=== PATIENT | female | born 1990 | race Caucasian/White ===

== ENCOUNTER 2022-05-30 15:00 | Outpatient (RCR) | payer MEDICAID, SELFPAY ==
--- NOTE | 2022-04-19 09:54 | PT.OPDNX ---
PT [place] [facility] Daily Note PT [place] [facility] Daily Note Start: 04/17/22 07:58 Freq: Status: Active Protocol: Document 04/18/22 15:53 ARR (Rec: 04/18/22 16:55 ARR [id number]) E-Signed By Prema Hawthorne DPT PT OP Daily Progress Note Visit Information Note Type Daily Note Visit Number 7 Cancellation Note Cancelled Documentation Eval: 01/16/22 // 1x/wk x 12 visits Re-eval 04/18/22 / 8 visits every other wk POC 04/18/22 Insurance Information Insurance Name Medicaid,[facility] Medical Diagnosis abdominal pain s/p Treating Diagnosis R10.30 Lower abdominal pain, unspecified R27.8 Lack of coordination ( muscle incoordination Referring MD Kanwal Messer Subjective Subjective Things going well. A few had difficulty connecting with lower abs. Walking does 0.7 miles. [place] hasn't been as painful. Objective Patient Instructed in Risks/Benefits Yes Therapeutic Exercise Therapeutic Exercise: To Restore TE x 5 min Functional Status -Education for walking to 30 minutes -Education for monitoring for increased PF sx's with addition of strengthening exercises to include: dysuria, difficulty fully emptying, difficulty starting urine stream, inc'd pain with intercourse -To complete stretching/ breathing exercises after new HEP - pt to pick 2-3 exercises for 2-3 minutes after HEP strengthening -Progression toward strengthening with pt goal of return to running when able. Neuromuscular Re-Ed Neuromuscular Reeducation Minutes ( 42 minutes) Neuromuscular Reeducation Comments NMR x 55 min for purposes of reducing tissue tenderness, pain, and improving overall mobility -Mini-squat x 15 reps - cues for form and chair for hips back -Bridge x 5 reps -Bridge with alt December x 3 -Bridge w/alt LE december keeping toe down 2 x 5 reps - progressed HEP -TA set with alt December x 10 reps -TA set with alt December unloading leg by 50% x 5 reps -Side plank w/staggered stance 2 x 15-20 sec -Sidelying clam x 10 reps no band. x 15 reps OTB R LE. x 15 reps L LE.- progressed HEP -Hooklying breathing with TA activation on exhale x 5 reps. -TA set with bent LE fallout on an exhale x 10 reps ea LE -Counter push up x 15 reps Education: -Progressions of all exercises this date with reps/sets -How to complete at home either every other day for 4- 5x/wk with glut and core exercises 2-3 exercises of each OR to complete on alternating days for core and glut for recovery days. Treatment Minutes Timed Code Treatment Minutes 42 Total Treatment Time 42 Billing Units Neuromuscular Reeducation Units 3 Assessment/Impression Assessment/Impression Able to progress exercises this date in clinic and within HEP with goal of progression toward running. Intermittent cues throughout for form. Pt to progress toward walking 30 min then interval running. Plan of Care Physical Therapy Goals *Timeframe of goals are adjusted below to reflect new plan of care frequency. STG (within 4visits) 1)Pt will implement HEP without inc?d symptoms - MET LTG (within 8 visits) 1)Pt will report abdominal pain not exceeding 2/10 during the day for improved ability to care for child - met 2)Pt will be indep in collision mechanic training with proper breathing and TA/PF activation during squatting, lifting, reaching, for completion of ADL?s to reduce pain flare - progressing toward 3)Pt will report Marinoff scale 0/5 - progressing toward 4)Pt will report at least 70% improvement in neck/upper back pain since start of therapy for ability to return to PLOF - progressing toward Daily Plan of Care Continue per POC Daily Plan of Care Comments PLAN: 8 visits at a frequency of every other week within 90 days -Reassess scar -Return to running screen -Progress HEP Recertification Information Clinical Certification # #[id number] Patient's H.I.C.N.# # Initial Certification Date 01/16/22 Most Recent Visit 04/18/22 Recertification Start Date 04/19/22 Recertification Due Date 07/17/22 Reasons to Continue Skilled Therapy Pt has been seen from 01/16/22- 04/18/22 for x 7 visits s/p c- section. Interventions including therapeutic exercise , manual therapy, neuromuscular re-education, and self care. Focus of PT on spinal ROM, scar tissue mobilization s/p , deep breathing for PFM elongation, and recent progression to core/glut strengthening. At this time pt is making adequate progress toward goals, however, pt has not yet met all goals and continued skilled PT is indicated with extension of current plan of care. Rehabilitation Potential Good to achieve goals Continued Plan of Care and Interventions Recommend continued PT for an additional 8 visits at a frequency of every other week within 90 days I Certify That I Have Established All Therapy Services/Plan Therapist Signature & License Number Prema Marine DPT [id number] Physician Signature Shows Agreement Dates & Medical Necessity Physician Comment/Change Comment or Changes Physician Signature & Date Please Sign/Date Here Physician NPI Number #
== END 2022-08-16 16:19 | disposition home or self-care (01) ==
PROVIDERS: PCP Obstetrics & Gynecology; Visit Provider Obstetrics & Gynecology
DX: R10.30 Lower abdominal pain, unspecified (principal); Z51.89 Encounter for other specified aftercare
CPT/HCPCS: 97110; 97112; 97140

== ENCOUNTER 2022-06-06 11:29 | Outpatient (CLI) | payer MEDICAID, SELFPAY | END 2022-06-06 11:30 | disposition home or self-care (01) | LOC: NFLDREF 06-08 15:16 | PROVIDERS: PCP Obstetrics & Gynecology; Visit Provider Family Medicine | DX: R30.0 Dysuria (principal) | CPT/HCPCS: 87086 ==

== ENCOUNTER 2022-08-26 13:19 | Outpatient (CLI) | payer MEDICAID, SELFPAY ==
--- OUTSIDE RECORDS SUMMARY | 2022-08-31 09:46 | XMS_ITS | Clinical Summary ---
:1990 Author Organization [facility] [place] [address] Care Team Providers Name Role Phone Clinic, No Pcp Or Primary Care Provider Unavailable Allergies No known active allergies Medications No known medications Active Problems Not on file Encounters Date Type Specialty Care Team Description 06/02/2022 Office Visit Jennifer Vazquez Urinar y Problem DO 06/02/2022 Telephone Clinic, No Pcp Or Questions (REGARDING MEDICATION YANELY ENT WAS PRESCRIBED TODA Y IN [facility]) 06/02/2022 Travel from Last 3 Months Social History Tobacco Use Types Packs/Day Years Used Date Never Smoker Smokeless Tobacco: Never Used Sex Assigned at Date Recorded Not on file Obstetrics History Last Filed Vital Signs Vital Sign Reading Time Taken Comments Blood Pressure 123/60 06/02/2022 10:16 AM CDT Pulse 61 06/02/2022 10:16 AM CDT Temperature 36.8 ??C (98.3 ??F) 06/02/2022 10:16 AM CDT Respiratory Rate 18 06/02/2022 10:16 AM CDT Oxygen Saturation 98% 06/02/2022 10:16 AM CDT Inhaled Oxygen Concentration - - Weight 55.3 kg (122 lb) 05/24/2022 12:16 PM CDT Height - - Body Mass Index - - Plan of Treatment Health Maintenance Due Date Last Done Comments COVID-19 vaccine series (#1) 02/18/1991 Tdap 2001 Depression screening for age 12+ 2002 BMI (ht and wt on same day) for age 18+ 2008 Hepatitis C screening for age 18-79 2008 Tetanus booster 2010 Influenza for age 9-49 06/21/2022 Pap test for age 21-65 01/01/2025 01/01/2022, 01/01/2022 Procedures Procedure Name Priority Date/Time Associated Comments Diagnosis URINALYSIS STAT 06/02/2022 10:11 Dysuria Results for this MICROSCOPIC AM CDT procedure are i n the results section. UA W/ SEDIMENT EXAM STAT 06/02/2022 10:11 Dysuria Resu lts for this REFLEXED PER CRITERIA AM CDT proced ure are in the results section. from Last 3 Months Results (ABNORMAL) URINALYSIS MICROSCOPIC (06/02/2022 10:11 AM CDT) [facility] Method Time Signature RBC 0-2 0-2, None 06/02/2022 [place] Seen /HPF 10:37 AM [facility] WBC 11-25 (A) 0-2, 3-5, 06/02/2022 [place] None Seen 10:37 AM [facility] /HPF LABORATORY BACTERIA Few None 06/02/2022 [place] Seen, 10:37 AM [facility] Rare, Few LABORATORY Bacteria/ HPF EPITHELIAL Few None 06/02/[address] [facility] CELLS Seen, Few 10:37 AM [facility] Epi/HPF LABORATORY Specimen Anatomical Collection Method Collection Time Receive d Time (Source) Location / / Volume Laterality Urine URINE SPECIMEN / Non-Blood / 06/02/2022 10:11 022 Unknown Unknown AM CDT 10:25 AM CDT [place] DENT URINE Performing Organization Address City/State/ZIP Code Phon e Number [facility] [address] [place] [address] (ABNORMAL) UA W/ SEDIMENT EXAM REFLEXED PER CRITERIA (06/02/2022 10:11 AM CDT) [facility] Method Time Signature COLOR Yellow Yellow Color 06/02/[address] [facility] 10:38 AM [facility] CLARITY Slightly Clear 06/02/[address] [facility] Cloudy (A) Clarity 10:38 AM [facility] SPECIFIC <=1.005 (A) 1.010, 06/02/[address] [facility] GRAVITY,URINE 1.015, 10:38 AM MEDICAL 1.020, 1.025 T CENTER LABORATORY PH,URINE 6.5 6.0, 7.0, 06/02/2022 [place] 8.0, 5.5, 10:38 AM MEDICAL 6.5, 7.5, CDT CENTER 8.5 LABORATORY UROBILINOGEN, Normal Normal EU/dl 06/02/2022 [place] QUALITATIVE 10:38 AM [facility] PROTEIN, Negative Negative 06/02/2022 [place] URINE mg/dL 10:38 AM [facility] GLUCOSE, Negative Negative 06/02/[address] [facility] UR[facility] mg/dL 10:38 AM [facility] KETONES,URINE Negative Negative 06/02/[address] [facility] mg/dL 10:38 AM [facility] BILIRUBIN,URI Negative Negative 06/02/[address] [facility] NE 10:38 AM [facility] OCCULT Negative Negative 06/02/[address] [facility] BLOOD,URINE 10:38 AM [facility] NITRITE Negative Negative 06/02/[address] [facility] 10:38 AM [facility] LEUKOCYTE Large (A) Negative 06/02/[address] [facility] ESTERASE 10:38 AM [facility] Specimen Anatomical Collection Method Collection Time Receive d Time (Source) Location / / Volume Laterality Urine URINE SPECIMEN / Non-Blood / 06/02/2022 10:11 022 Unknown Unknown AM CDT 10:25 AM CDT Authorizing Provider Result [place] DENT URINE Performing Organization Address City/State/ZIP Code Phon e Number [facility] [address] [place] [address] from Last 3 Months Insurance Payer Benefit Plan / Subscriber ID Effective Dates Phone Addre ss Type Group [employer] [place] [id number] 2021-Present [address] [place] [address] Care Teams Engineer Booster And Exhauster Relationship Specialty Start Date End Date Clinic, No Pcp Or PCP - General 05/24/22 .
== END 2022-08-26 13:20 | disposition home or self-care (01) ==
LOC: NFLDUCREF 08-31 09:31
PROVIDERS: PCP Family Medicine; Visit Provider Registered Nurse
DX: R30.0 Dysuria (principal); N39.0 Urinary tract infection, site not specified
CPT/HCPCS: 87086

== ENCOUNTER 2022-11-01 11:00 | Outpatient (CLI) | payer MEDICAID, SELFPAY | END 2022-11-01 11:01 | disposition home or self-care (01) | LOC: NFLDREF 11:01 | PROVIDERS: PCP Family Medicine; Visit Provider Family Medicine | DX: R30.0 Dysuria (principal) | CPT/HCPCS: 87086 ==

== ENCOUNTER 2022-11-12 19:14 | Outpatient (CLI) | payer MEDICAID, SELFPAY | END 2022-11-12 19:15 | disposition home or self-care (01) | LOC: NFLDUCREF 11-14 14:19 | PROVIDERS: PCP Family Medicine; Visit Provider Student in an Organized Health Care Education/Training Program | DX: R30.0 Dysuria (principal) | CPT/HCPCS: 87086 ==

== ENCOUNTER 2023-01-16 15:00 | Outpatient (RCR) | payer MEDICAID, SELFPAY | END 2023-02-14 08:49 | disposition home or self-care (01) | PROVIDERS: PCP Family Medicine; Visit Provider Family Medicine | DX: M62.89 Other specified disorders of muscle (principal); Z51.89 Encounter for other specified aftercare | CPT/HCPCS: 97110; 97140; 97161; 97535 ==

== ENCOUNTER 2023-04-08 14:34 | Outpatient (CLI) | payer MEDICAID, SELFPAY | END 2023-04-08 14:35 | disposition home or self-care (01) | PROVIDERS: PCP Family Medicine; Visit Provider Advanced Practice Midwife | DX: Z34.91 Encounter for supervision of normal pregnancy, unspecified, first trimester (principal); Z3A.08 8 weeks gestation of pregnancy | CPT/HCPCS: 76817; 84443; 86592; 86703; 86762; 86787; 86803; 86850; 86900; 86901; 87086; 87340 ==

== ENCOUNTER 2023-04-30 08:30 | Outpatient (CLI) | payer MEDICAID, SELFPAY | END 2023-04-30 08:31 | disposition home or self-care (01) | LOC: NFLDREF 05-01 06:42 | PROVIDERS: PCP Family Medicine; Referring Provider Family Medicine; Visit Provider Advanced Practice Midwife | DX: Z34.81 Encounter for supervision of other normal pregnancy, first trimester (principal); O26.851 Spotting complicating pregnancy, first trimester; Z3A.12 12 weeks gestation of pregnancy | CPT/HCPCS: 87086 ==

== ENCOUNTER 2023-06-27 12:14 | Outpatient (CLI) | payer MEDICAID, SELFPAY ==
--- NOTE | 2023-06-27 12:15 | CRLHL7_ITS ---
For Patients: As a result of the Century Cures Act, medical imaging exams and procedure reports are released immediately into your electronic medical record. You may view this report before your referring provider. If you have questions, please contact your health care provider. CLINICAL HISTORY: Basic anatomy survey. LEXX by LMP: 11/12/2023 GA: 20w, 2d. INDICATION: BFAS. FINDINGS: position: Vertex, longitudinal. Cervix: Visualized. Technique: Transabdominal. Length of closed cervix: 3.8 cm. Placenta/cord: Irregular lakes, Posterior. Technique: Transabdominal. Placenta tip to internal OS: 6.5 cm. Umbilical Cord: 3-vessel cord. Placenta insertion: Central. Amniotic Fluid: 3.6 cm SDP (greater than/equal to: 2- less than 8 cm). SURVEY: Observed Structures Calvarium/Spine: Cerebellum: 2.2 cm, 22w 0d. Cisterna Magna: 5 mm. Nuchal Fold: 2.8 mm. Lateral Ventricle: 7 mm. CSP: Yes. Midline Falx: Yes. Choroid Plexus: Yes. Spine: Yes. Abdomen: Stomach: Yes. Abd Cord Insertion: Yes. Urinary Bladder: Yes. Kidneys: Yes. Diaphragm: Yes. Face: Nose/lips: Yes. No. Orbital view: Yes. Profile: Yes. Limbs: Upper Extremities: Yes. Lower Extremities: Yes. Hands: Yes. Feet: Yes. Vascular: Four-Chamber Heart: Yes. LVOT: Yes. RVOT: Yes. 3VV: Yes. 3VTV: Yes. BPD: 4.8 cm. 20w 3d, 55 percent. HC: 18.2 cm. 20w 4d, 56 percent. AC: 15.5 cm. 20w 5d, 58 percent. FL: 3.4 cm. 20w 4d, 51 percent. FL/AC: 21.64 percent. HC/AC Ratio: 1.17 Heart rate: 149 beats per minute. age by this US: 20w 6d. LEXX by this US: 11/08/2023 EFW: 366g. Weight: 13oz. Percentile by LEXX: 65 percent. There are hypoechoic areas within the placenta most likely reflecting venous lakes. IMPRESSION: Single live intrauterine gestation. No gross anomalies visualized. Cheryl Mccallum M.D. Diagnostic/Breast Radiologist [email or web address] CHARLEYP/[email or web address] PT/Dictated by: Cheryl Mccallum MD @ 06/28/2023 6:37:00 AM (Electronically Signed)
== END 2023-06-27 12:15 | disposition home or self-care (01) ==
LOC: US 12:15
PROVIDERS: PCP Family Medicine; Visit Provider Advanced Practice Midwife
DX: Z34.92 Encounter for supervision of normal pregnancy, unspecified, second trimester (principal); Z3A.20 20 weeks gestation of pregnancy
CPT/HCPCS: 76805

== ENCOUNTER 2023-08-27 13:46 | Outpatient (CLI) | payer MEDICAID, SELFPAY | END 2023-08-27 13:47 | disposition home or self-care (01) | LOC: NFLDREF 13:47 | PROVIDERS: PCP Family Medicine; Visit Provider Advanced Practice Midwife | DX: Z34.93 Encounter for supervision of normal pregnancy, unspecified, third trimester (principal); Z3A.29 29 weeks gestation of pregnancy | CPT/HCPCS: 86592; 86850; J2791 ==

== ENCOUNTER 2023-10-18 08:31 | Outpatient (CLI) | payer MEDICAID, SELFPAY ==
[2023-10-19 07:48] LABS: Strep B DNA Probe Negative (Negative)
[2023-10-19 07:49] LABS: Strep B Susceptibility Needed? No
== END 2023-10-18 08:32 | disposition home or self-care (01) ==
LOC: NFLDREF 08:32
PROVIDERS: PCP Family Medicine; Visit Provider Obstetrics & Gynecology
DX: Z34.93 Encounter for supervision of normal pregnancy, unspecified, third trimester (principal); Z3A.36 36 weeks gestation of pregnancy
CPT/HCPCS: 76816; 87081; 87653

== ENCOUNTER 2023-11-05 07:30 | Outpatient (RCR) | payer MEDICAID, SELFPAY ==
--- NOTE | 2023-08-21 13:11 | PT.OPEX ---
PT [place] Outpatient Eval PT [facility] Outpatient Eval Start: 08/20/23 07:25 Freq: Status: Active Protocol: Document 08/20/23 07:26 ARR (Rec: 08/20/23 08:44 ARR [email or web address]) E-signed By Prema Hawthorne DPT Physical Therapy Outpatient Evaluation Insurance Information Recert Due Date 11/18/23 Insurance Name Medicaid,[facility] Medical Diagnosis O34.219 maternal care for unspecified type scar from previous delivery Treating Diagnosis R10.2 Pelvic and perineal pain M54.5 thoracic spine pain N94.2 vaginismus Referring MD Shirley Galan CNM Subjective Subjective -Subjective: with LEXX 11/12/23, pt wishing to pursue a TOLAC. Pt concerned with aches/pains related to . Mid back is the greatest and groin muscles. Groin muscles increased with walking, clams. Biggest concern is anything to have a after for 1st . -Urinary: No leakage. Able to fully empty without straining and start urine stream without straining. Daytime voiding 8- 10x/day. 1x at night. -Bowel: 1x/day. No straining. [place] chart type 2-3. Can fully empty. -Sexual: Does lengthening exercises prior to intercourse . Pain greatest with initial insertion. Marinoff scale score 1. -PMHx: vaginismus, vestibulitis, hypothyroidism -: G/P 2/ -Surgical PMHx: 1st delivery on 11/20/2021 due to intolerance -Current exercise: Lifting 2x/ week (stopped ab exercises when she bled during 1st trimester, UE strengthening, clams and squats) and walking 3x/wk for 2-3 miles. Objective Other/Pertinent Objective EXTERNAL OBJECTIVE: -Movement screen: MS flexion reduced LS and TS. MS extension reduced TS and LS. MS rotation WNL bilat. -SLS: mild groin pain on opposite LE. Able to maintain 30 sec. Reduced with pelvic compression. -Posture: level IC, bilat foot supination with bilat foot/ hip ER. Inc'd TS kyphosis, reduced LS lordosis. -Hip PROM: IR R 30 / 20 L. ER bilat 80*. -Strength: Other Tests: -Coordination: -Breathing: dec?d posterior and lateral ribcage mvmt with inhalation -Myofascial palpation: Decreased connective tissue mobility with skin rolling at XXX areas -DR: 1/2 depth and 2 fingers at umbilicus / 1/2 depth and 1 fingers below umbilicus / 1/2 depth and 3 fingers above umbilicus Assessment Assessment/Impression Pt is a 33 y/o female who presents with concerns of pelvic pain, thoracic spine pain, and also seeking pelvic floor preparation for for upcoming with LEXX . External assessment was completed at initial evaluation and was significant for bilateral HF tightness, hip IR tightness, global spinal stiffness, and proximal weakness of TA and gluts. Upcoming sessions to assess PFM transvaginally to assess local PFM. Patient is a good candidate for skilled therapy to target deficits described above. Skilled PT intervention is necessary for use of therapeutic exercise manual therapy, neuromuscular re- education, gait training, and therapeutic activity. Functional impairments include difficulty with: walking. See appropriate sections of PT eval for complete list of goals and POC. D/C plan and criteria is for pt to achieve the goals as listed below or until max rehab potential is met. Pt was agreeable with plan of care and goals established. Plan of Care Rehabilitation Potential Good Physical Therapy Goals STG (within 5 visits) 1) Pt will demonstrate proper coordination of motor recruitment patterns for PF then TA activation during isometric activation while maintaining diaphragmatic breathing pattern 2) Pt will report at least 25% improvement in pelvic pain since start of therapy for improved ease of walking using lumbar supports as indicated LTG (within 10 visits) 1) Pt will demonstrate proper coordination of motor recruitment patterns for PF then TA activation during dynamic UE/LE movements in all postures while maintaining diaphragmatic breathing pattern 2) Pt will demonstrate ability to contract, relax, and bulge through PFM without breath holding in multiple positions to show PFM awareness for vaginal delivery 3) Pt will be indep in 3rd trimester lengthening/ prep exercises to improve PFM length and reduce PFM tension 4) Pt will report at least 50% improvement in pelvic pain since start of therapy for improved ease of walking using lumbar supports as indicated Treatment Plan/Direct Interventions Gait Training,Joint Mobilization,Manual Therapy, Neuromuscular Re-ed,Self-Care/ Home Management,Therapeutic Activities,Therapeutic Exercises Frequency/Duration 1x/wk x 10 visits Evaluation Billing Untimed Code Treatment Minutes 30 Complexity Moderate Certification Information Initial Certification Date 08/20/23 Ending Certification Date 11/18/23 Provider Signature Shows Agreement With POC & Medical Necessity Physician Signature & Date Requested Please Sign/Date Here Physician Comment/Change : Physician NPI Number #
== END 2024-03-04 23:59 | disposition home or self-care (01) ==
PROVIDERS: PCP Family Medicine; Visit Provider Advanced Practice Midwife
DX: O34.219 Maternal care for unspecified type scar from previous cesarean delivery (principal); N94.810 Vulvar vestibulitis; N94.2 Vaginismus; R10.2 Pelvic and perineal pain; M54.6 Pain in thoracic spine; Z51.89 Encounter for other specified aftercare
CPT/HCPCS: 97110; 97112; 97140; 97162

== ENCOUNTER 2023-11-19 08:16 | Outpatient (CLI) | payer MEDICAID, SELFPAY ==
--- NOTE | 2023-11-19 08:15 | CRLHL7_ITS ---
For Patients: As a result of the Century Cures Act, medical imaging exams and procedure reports are released immediately into your electronic medical record. You may view this report before your referring provider. If you have questions, please contact your health care provider. INDICATION: Post-dates COMPARISON: 10/18/2023 TECHNIQUE: Real time hill scale imaging of the fetus was performed. Without non-stress testing. FINDINGS: Sonographic imaging demonstrates a single living intrauterine gestation. Fetus demonstrates a regular cardiac rate of 141 beats per minute. Fetus has a vertex position. The amniotic fluid volume appears normal and there is a single deepest pocket measurement of 4.2 cm. The fetus was active and demonstrated normal breathing movements. There was normal flexion and extension of the trunk and extremities. IMPRESSION: Normal biophysical profile score of 8 out of 8. Dictated by Darnell Peralta MD @ 11/19/2023 9:11:19 AM (Electronically Signed)
--- OUTSIDE RECORDS SUMMARY | 2023-11-19 08:18 | XMS_ITS | Clinical Summary ---
Author Name Unknown Organization [facility] Address [place], [place] [address] Care Team Providers Care Analytics Developer Name Role Phone Clinic, No Pcp Or Primary Care Provider Unavaila ble Allergies No known active allergies Medications No known medications Active Problems No known active problems Social History Tobacco Use Types Packs/Day Years Used Date Smoking Tobacco: Never Smokeless Tobacco: Never Sex and Gender Information Value Date Recorded Sex Assigned at Not on file Gender Identity Not on file Sexual Orientation Not on file Obstetrics History Last Filed Vital Signs Vital Sign Reading Time Taken Comments Blood Pressure 130/70 10/13/2022 12:08 PM CAR PORTER Pulse 75 10/13/2022 12:08 PM CAR PORTER Temperature 36.6 ??C (97.8 ??F) 10/13/2022 12:[address] Respiratory Rate 16 10/13/2022 12:08 PM CAR PORTER Oxygen Saturation 99% 10/13/2022 12:08 PM CAR PORTER Inhaled Oxygen Concentration - - Weight 55.3 kg (122 lb) 10/13/2022 12:08 PM CAR PORTER Height - - Body Mass Index - - Plan of Treatment Health Maintenance Due Date Last Done Comments COVID-19 vaccine series (#1) 02/18/1991 Tdap 2001 Depression screening for age 12+ 2002 HIV for age 15-65 2005 BMI (ht and wt on same day) for age 18+ 2008 Hepatitis C screening for ag e 18-79 2008 Tetanus booster 2010 Influenza for age 9-49 06/21/2023 Pap test for age 21-65 01/01/2025 2, 01/01/2022 Pneumococcal series for age 6-64 Aged Out No longer eligible b ased on patient's age to complete this topic Care Teams Analytics Developer Relationship Specialty Start Date End Date Clinic, No Pcp Or . PCP - General 05/24/22
== END 2023-11-19 08:17 | disposition home or self-care (01) ==
LOC: US 08:16
PROVIDERS: PCP Family Medicine; Visit Provider Advanced Practice Midwife
DX: O48.0 Post-term pregnancy (principal); Z3A.41 41 weeks gestation of pregnancy
CPT/HCPCS: 76819

== ENCOUNTER 2023-11-20 16:20 | Inpatient (IN) | payer MEDICAID, SELFPAY ==
[2023-11-20] VITALS (50 sets, daily range): BP systolic 98–192; BP diastolic 54–140; PULSE 87–154; RESP 16–18; TEMP 36.3–36.8; O2SAT 85–100; BMI 19.5
--- OUTSIDE RECORDS SUMMARY | 2023-11-20 15:58 | XMS_ITS | Clinical Summary ---
Author Name Unknown Organization [facility] Address [place], [place] [address] Care Team Providers Care Journeyman Wireman Name Role Phone Clinic, No Pcp Or [...] Comments Blood Pressure 130/70 10/13/2022 12:08 PM MAINTENANCE CONTROLLER Pulse 75 10/13/2022 12:08 PM MAINTENANCE CONTROLLER Temperature 36.6 ??C (97.8 ??F) 10/13/2022 12:[address] Respiratory Rate 16 10/13/2022 12:08 PM MAINTENANCE CONTROLLER Oxygen Saturation 99% 10/13/2022 12:08 PM MAINTENANCE CONTROLLER Inhaled Oxygen Concentration - - Weight 55.3 kg (122 lb) 10/13/2022 12:08 PM MAINTENANCE CONTROLLER Height - - Body Mass Index - [...] age to complete this topic Care Teams Journeyman Wireman Relationship Specialty Start Date End Date Clinic, No Pcp Or . PCP - General 05/24/22
--- NOTE | 2023-11-20 16:24 | P.LDBA_ITS ---
Subjective History of Present Illness Time Seen by Provider: 16:20 Date Seen: 11/20/23 Narrative: Patient is being admitted to Labor and Delivery for labor. She is a 33 year old at weeks gestation. Her full history and physical was dictated by Dr. Messer on 10/25/23. Please see this for details. Specific Issues/Plans -Rigoberto (Alcides) H&P 10/25/23 Dr. Messer 1. Hx for intolerance (11/20/2021) when 8 cm dilation, OP presentation, 9 lb 10 oz Infant transferred for respiratory distress Desires TOLAC. Consent signed. TOLAC consult / consent reviewed with Dr. Messer 07/22/23 Likelihood of success 85% Growth at 36 weeks: cephalic, SDP 5.7 cm, EFW 57%, AC 95%, BPD 75%, HC 85%, FL 11% 2. Recurrent UTI's (not in ). UA at NOB: negative 3. O- Rhogam 28 weeks: received 08/27 : 4. Diffuse placenta mcelroy noted on anatomy scan. report notes hypoechoic areas within the placenta most likely reflecting venous lakes. consulted Dr. Messer, no need for follow up. 5. Post dates BPP on 11/19- 05/28 returning in 2-3 days for NST recommended IOL at 42 weeks COVID: declines Flu: ask again in fall TDAP: Declines 32wk Mental Health: Done OB - Problem Based A/P Additional Plan (1) Pain during labor: Status: Acute (2) Post-dates : Status: Acute (3) Uterine scar from previous delivery affecting : Status: Acute (4) Rh negative status during : Status: Acute Plan Assessment:?? at 41.1 weeks gestation?? GBS negative? Patient is coping well with challenges of labor.?? Labor type: Spontaneous, Active labor? Category 1 FHR pattern.? complicated by: 1. Hx for intolerance (11/20/2021) when 8 cm dilation, OP presentation, 9 lb 10 oz transferred for respiratory distress Desires TOLAC. Consent signed. TOLAC consult / consent reviewed with Dr. Messer 07/22/23 Likelihood of success 85% Growth at 36 weeks: cephalic, SDP 5.7 cm, EFW 57%, AC 95%, BPD 75%, HC 85%, FL 11% 2. Recurrent UTI's (not in ). UA at NOB: negative 3. O- Rhogam 28 weeks: received 08/27 : 4. Diffuse placenta mcelroy noted on anatomy scan. report notes hypoechoic areas within the placenta most likely reflecting venous lakes. consulted Dr. Messer, no need for follow up. 5. Post dates BPP on 11/19- 05/28 returning in 2-3 days for NST recommended IOL at 42 weeks Plan:?? * ?Admit to L & D? * IV access: SL for TOLAC * Monitoring per policy: continuous ? * Candidate for analgesia of choice.? Planning unmedicated for pain management * Expectant management at this time ? * Patient encouraged to reposition and ambulate to promote physiologic labor and . * Anticipate ? Delivery/Labor/Induction Plan Plan: expectant management OB Exam Physical Exam Vital signs: Pulse BP 114 H 123/72 11/20/23 16:13 11/20/23 16:13 Narrative: Vitals Reviewed Constitutional:? Alert and oriented x3 HEENT:? Normocephalic, atraumatic Neck:? Supple Lungs:? Clear to auscultation bilaterally Heart:? Regular rate and rhythm, no murmur, rub or gallop Abdomen:? Soft, nontender, and gravid. Vertex confirmed with cervical exam. Extremities:? No edema or erythema Cervix: 8.5 cm/90%/+2 station/vertex NST: 135 bpm/moderate variability/+accelerations/-decelerations/q 3-5 minutes contractions Detailed Labor and Delivery Exam Patient Gravid: Yes Dilation (cm): 8 Effacement (%): 90 Cervix position: anterior Consistency: soft Contraction Frequency: 2-3 Contraction duration (sec): 60 Tachysystole: No Contraction intensity: Strong/Firm Fetus (Single) Station: +2 Amniotic Membrane Status: intact Heart Rate Baseline: 135 Monitor Accelerations: Absent Monitor Decelerations: None Floor Scraper Variability: Moderate (6-25)
[2023-11-20 17:22] LABS: Basophils Percent Auto 0.1 % (0.0-3.0); Eosinophils Percent Auto 0.1 % (0.0-7.0); Hemoglobin* 13.8 gm/dL (12.0-16.0); Immature Granulocytes Pct Auto 0.1 %; Lymphocytes Percent Auto 7.3 % (20-44); Mean Corpuscular HGB Conc 34 gm/dL (32-36); Mean Corpuscular Hemoglobin 32 pg (26-34); Mean Corpuscular Volume 95 fL (80-100); Monocytes Percent Auto 5.1 % (0.0-11.0); Neutrophils Percent Auto 87.3 % (42.0-72.0); Platelet Count* 238 K/uL (140-440); RDW Coefficient of Variation % 12.3 % (11.5-15.5); White Blood Count* 14.47 K/uL (4.50-11.00)
[2023-11-20 17:37] LABS: Slide Review Reflex No
[2023-11-20] MEDS: LACTATED RINGERS 1000 ML 1,000 ML 1200 ML IV (18:40)
--- NOTE | 2023-11-20 18:58 | PM.OBPNL ---
Subjective Time Seen by Provider: 18:00 Date Seen: 11/20/23 Narrative: ?Patti is coping well with labor pain/contractions. ?Alcides and her criminal justice teacher are with her for support. ?She has been pushing since 1642 with little progress, assumed complete with pushing. Dr. Nichols called to bedside to evaluate positioning. AROM for clear fluid, manual exam and US for presentation evaluation.? Objective Exam: VSS, afebrile General Appearance:? Calm, cooperative. ?No acute distress. ? Psychiatric Exam: Alert and oriented, appropriate affect Abdomen: Gravid Ctx: ?Q 3-5 min apart. ? ? ?Strong FHTs: ?Baseline: 145. ? ? Variability: moderate. ?Accels: +. ? ?Decels: ?-. SVE: 10 assumed with pushing, feels an anterior lip not able to reduce. Membranes: ?AROM Vital Signs: Last Vital Signs Temp 98 F 11/20/23 18:33 Pulse 95 11/20/23 18:21 Resp 16 11/20/23 17:29 BP 107/54 L 11/20/23 18:21 Pulse Ox 98 11/20/23 16:28 Contractions Contraction intensity: Strong/Firm Assessment Station: +2 Heart Rate Baseline: 135 Monitor Accelerations: Absent Monitor Decelerations: None Plan Plan: Assessment:?? at 41.1 gestation?? GBS negative Patient is coping well with challenges of labor.?? Labor type: Spontaneous, Active labor? Category 1 FHR pattern.? complicated by: Hx of C/S desiring TOLAC RH negative blood type Post dates Labor complicated by: slow progression with pushing? Plan:?? Encourage pt to not push if able, may continue with pushing after Dr. Mcarthur evaluation. Continue with routine intrapartum cares as ordered.?? Patient encouraged to move and change positions to promote physiologic labor and .?? Nonpharmacologic comfort measures per patient preference. Candidate for analgesia of choice if desired. Anticipate progress to NVD. ?
--- NOTE | 2023-11-20 19:05 | PM.OBPNL ---
Subjective Date Seen: 11/20/23 Narrative: Patti is currently having an epidural placed for pain management. Objective Vital Signs: Last Vital Signs Temp 98 F 11/20/23 18:33 Pulse 95 11/20/23 18:21 Resp 16 11/20/23 17:29 BP 107/54 L 11/20/23 18:21 Pulse Ox 89 11/20/23 19:02 Contractions Contraction intensity: Strong/Firm Assessment Station: +2 Heart Rate Baseline: 135 Monitor Accelerations: Absent Monitor Decelerations: None Plan Plan: Plan to place navas to empty catheter and take break from pushing once comfortable
[2023-11-20] MEDS: ROPIVACAINE 0.2 % PF 10 ML INJ 20 MG EPIDURAL (19:06)
[2023-11-20] MEDS: LIDOCAINE 2% (PF) 5 ML VIAL EPIDURAL (19:06)
[2023-11-20] MEDS: ROPIVACAINE 0.2% 100 ml 100 ML 12 MG EPIDURAL (19:10)
--- NOTE | 2023-11-20 19:20 | P.ANBPRC_ITS ---
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 Exercise 4 times a week running and weights Lifetime nonsmoker 3 alcoholic drinks a week Smoking Status: Never smoker Do you use any of these nicotine containing products: None Second hand tobacco smoke exposure: No How often do you have a drink containing alcohol: 2-4 times a month How many standard drinks containing alcohol do you have on a typical day: 1 or 2 How often do you have six or more drinks on one occasion: Never AUDIT-C Alcohol total score: 2 Non-prescribed substance use: denies use Little interest or pleasure in doing things: not at all Feeling down, depressed, or hopeless: not at all service: No Meds Home Medications and Allergies Home Medications Medication Instructions Recorded Confirmed Type ascorbate calcium (vitamin C) 500 500 mg PO QDAY 04/08/23 11/19/23 History mg tablet docosahexaenoic acid 200 mg mg PO 04/08/23 11/19/23 History capsule ( DHA) lysine 1,000 mg tablet 1,000 mg PO QDAY 04/08/23 11/20/23 History zinc gluconate 30 mg tablet 30 mg PO ONCE 04/08/23 11/20/23 History calcium carbonate 600 mg calcium 600 mg PO QDAY 10/03/23 11/19/23 History (1,500 mg) tablet (Calcium) magnesium 250 mg tablet 250 mg PO QDAY 10/03/23 11/20/23 History Allergies Allergy/AdvReac Type Severity Reaction Status Date / Time No Known Allergies Allergy Unknown Verified 11/19/23 11:16 Results Labs Labs: Laboratory Results - last 24 hr 11/20/23 17:17 WBC 14.47 H RBC 4.30 Hgb 13.8 Hct 41.0 MCV 95 MCH 32 MCHC 34 RDW Coeff of Martine 12.3 Plt Count 238 Neut % (Auto) 87.3 H Lymph % (Auto) 7.3 L [place] % (Auto) 5.1 Eos % (Auto) 0.1 Baso % (Auto) 0.1 Neut # (Auto) 12.60 H Lymph # (Auto) 1.10 [place] # (Auto) 0.70 Eos # (Auto) 0.00 Baso # (Auto) 0.00 Abs Immat Gran (auto) 0.00 Imm/Tot Granulo (auto) 0.1 Blood Type O Negative Antibody Screen POSITIVE Vital Signs Vital Signs: Last Vital Signs Temp 98 F 11/20/23 18:33 Pulse 112 H 11/20/23 19:19 Resp 16 11/20/23 17:29 BP 119/76 11/20/23 19:19 Pulse Ox 100 11/20/23 19:16 Weight: 60 kg Height: 175.26 cm Anesthesia Procedures Epidural Insertion Patient Location: OB Start Time: 18:20 Stop Time: 19:22 Start Date: 11/20/23 Stop Date: 11/20/23 Reason for Block: procedure for pain Patient Position: sitting Performed By: Lionel Bonilla Preanesthetic Checklist: IV checked, risks and benefits discussed, surgical consent, monitors and equipment checked, pre-op evaluation, timeout performed and anesthesia consent Prep: chlorhexidine gluconate Monitoring: blood pressure monitoring, continuous pulse oximetry and heart rate Approach: midline Vertebral Space: lumbar (1-5) Needle Type: Tuohy needle Injection Technique: continuous catheter Needle gauge: 17 Needle Length (cm): 10 cm Needle Insertion Depth (cm): 6 Catheter Gauge: 19 Catheter Type: multi-orifice Catheter at skin depth (cm): 12 Test Dose Result: negative and lidocaine 1.5% with epinephrine 1 to 200,000
[2023-11-20] MEDS: LACTATED RINGERS 1000 ML 1,000 ML 125 ML IV (20:10)
--- NOTE | 2023-11-20 20:10 | PM.OBPNL ---
Subjective Date Seen: 11/20/23 Narrative: ?Patti is coping well with labor pain/contractions. ?Alcides and Silva are with her for support. ?She is now comfortable with an epidural in place for comfort and pain management.?SVE shows anterior lip is gone and she is now complete. She would like to rest for another 15 minutes and then begin pushing again. Objective Exam: VSS, afebrile General Appearance:? Calm, cooperative. ?No acute distress. ? Psychiatric Exam: Alert and oriented, appropriate affect Abdomen: Gravid Ctx: ?Q 3-5 min apart. ? ? ?Strong FHTs: ?Baseline: 150. ? ? Variability: moderate. ?Accels: +. ? ?Decels: ?occasional lates and variables with contractions. SVE: 10/100/+1 Membranes: ?AROM clear fluid Vital Signs: Last Vital Signs Temp 98 F 11/20/23 18:33 Pulse 110 H 11/20/23 19:58 Resp 16 11/20/23 17:29 BP 109/55 L 11/20/23 19:58 Pulse Ox 99 11/20/23 20:06 Contractions Contraction intensity: Strong/Firm Assessment Station: +2 Heart Rate Baseline: 135 Monitor Accelerations: Absent Monitor Decelerations: None Plan Plan: Assessment:?? at 41.1 wks gestation?? GBS negative Patient is coping well with challenges of labor.?? Labor type: Spontaneous, Active labor? Category 2 FHR pattern.? complicated by: Hx of C/S desiring TOLAC Rh negative Post dates Labor complicated by: Slow decent with persistent anterior lip now resolved.? Plan:?? 15 minute break then begin pushing again Continue with routine intrapartum cares as ordered.?? Patient encouraged to move and change positions to promote physiologic labor and .?? Nonpharmacologic comfort measures per patient preference. Candidate for analgesia of choice if desired. Anticipate progress to NVD. ?
[2023-11-20] MEDS: LACTATED RINGERS 1000 ML 1,000 ML 1100 ML IV (21:07)
--- NOTE | 2023-11-20 21:16 | PM.OBPRCCS ---
Procedure Time Seen by Provider: 22:52 Date of procedure: 11/20/23 Pre-op diagnosis: During heart tones remote from delivery, trial of labor after Post-op diagnosis: same Procedure Done: Global Will [facility] bill your pro fee for this procedure?: Yes Blood Loss Measurement Type: QBL (355) Bakri Used: No IV fluids (mL): 1,200 Urine Output (mL): 250 Urine Output Comment: Blood tinged, clearing in proximal urethral catheter at completion of case Surgeon: Satnam Nichols MD Anesthesia Type: Epidural Findings: Thinning of the lower urine segment Otherwise unremarkable uterus, bilateral fallopian tubes and ovary Procedure Name: Repeat delivery Procedure Description: Patient was taken to the operating room with IV running. She received cefazolin and azithromycin in preoperative prophylaxis. Epidural anesthesia had previously been administered. Mckay catheter had been previously inserted, blood-tinged urine noted prior to case. She was prepped and draped in the usual sterile fashion. Anesthesia was tested and found to be adequate. A low-transverse skin incision was made with a scalpel and carried through to the underlying layer of fascia with the scalpel. The subcutaneous fat was dissected off the underlying fascia with Bovie. The fascia was nicked in the midline with a scalpel, and this incision was extended laterally with scissors. Mild adhesive disease between the rectus fascia and underlying muscles were noted and taken down with a combination of sharp and blunt dissection. The rectus muscles were in the midline. Peritoneum was identified and entered bluntly. Bovie was used to widen this opening laterally. Surinder O retractor was inserted and tightened down, providing excellent visualization of the lower uterine segment. The bladder reflection was found to be advanced to the superior margin of the lower uterine segment. Lower uterine segment was noted to be thinned, no window noted however. A bladder flap was created with a combination of sharp and blunt dissection to below the level of planned hysterotomy. Low-transverse uterine incision was made with a scalpel. Incision was widened bluntly. The 's head was grasped through the hysterotomy and delivered with the help of fundal pressure. The remainder of the body delivered without incident. Cord was clamped and cut after 30 seconds. Infant was handed off to attending nurses. The placenta was delivered with gentle traction on the cord. The uterus was cleaned of all clots and debris with the dry lap pad. The hysterotomy was reapproximated with 0 Vicryl in a running, locked fashion. Second layer of the same suture was used in imbricating fashion to obtain hemostasis. Excellent uterine tone was noted at the mid body to fundus of uterus, lower uterine segment atony was noted and improved with IV Pitocin and uterine massage. The adnexa were examined and noted to be normal in appearance. The cul-de-sac and gutters were cleansed with dampened laparotomy sponge, removing any further clots and debris. The Surinder O retractor was removed. The hysterotomy was reexamined and found to be hemostatic. Bladder flap was examined and found to be hemostatic. Mcaky catheter balloon was utilized to help delineate the bladder reflection from lower uterine segment, where hysterotomy closure was again confirmed to be clear of bladder. The rectus muscles were examined and made to be hemostatic with electrocautery. The fascia was reapproximated with 0 Vicryl in a running fashion. Subcutaneous fat was irrigated and Bovie used on oozing vessels. The skin was closed with a subcuticular stitch of 3-0 Monocryl. Surgical glue was applied above this. Patient tolerated procedure well was taken to recovery area in stable condition. details: - Delivery of live-born female occurred at 10:09 p.m. - Apgars were 7 and 9 at 1 and 5 minutes respectively - weighed 8 lb 12 oz Complications: None Pathology: specimen obtained, sent to pathology Surgery Debrief Performed: Yes Condition: stable Disposition: floor
--- NOTE | 2023-11-20 21:24 | PM.OBPNL ---
Subjective Date Seen: 11/20/23 Narrative: ?Patti is coping well with labor pain/contractions. ?Alcides and her reconciliation specialist are with her for support. ?She has been pushing with little progress for about 1 hour. Recent FHT baseline has increased and been 160-170's with deep variable with some contractions and occasional late decelerations. Discussed this with patient and recommended we consult with Dr. Nichols and move toward repeat C/S. Both Patti and Alcides are in agreement with the plan. ? Objective Vital Signs: Last Vital Signs Temp 98 F 11/20/23 18:33 Pulse 91 11/20/23 21:20 Resp 16 11/20/23 17:29 BP 100/56 L 11/20/23 21:20 Pulse Ox 99 11/20/23 20:26 Contractions Contraction intensity: Strong/Firm Assessment Station: +2 Heart Rate Baseline: 135 Monitor Accelerations: Absent Monitor Decelerations: None Plan Plan: Assessment:?? at 41.1 gestation?? GBS negative Patient is coping well with challenges of labor.?? Labor type: Spontaneous, Active labor? Category 2 FHR pattern.? complicated by: Hx of C/S Rh negative Post dates Labor complicated by: arrest of decent non-reassuring FHT's? Plan:?? Consult with Dr. Nichols for repeat C/S Continue with routine intrapartum cares as ordered.??
[2023-11-20] MEDS: AZITHROMYCIN 500 MG in 0.9 % SODIUM CHLORIDE 250 ml 250 ML 255 MG IVPB (21:25)
--- NOTE | 2023-11-20 21:27 | P.OBCN_ITS ---
OB - CN: HPI Date of Consult Time Seen by Provider: 21:28 Date Seen: 11/20/23 Patient: [facility] Patient Consult date: 11/20/23 Requesting Physician: Angelia Gutiérrez CNM Primary Care Provider: Magaly Fuentes MD Consult Narrative Narrative: The patient is a 33 year old at 41 weeks gestation that was admitted to the [facility] on 11/20/23 for spontaneous onset of labor as a TOLAC. course complicated by late term gestation, Rh negative. Patient presented with spontaneous labor, where she subsequently started involuntary pushing and was thought to be complete. My assessment was requested for position after 2 hours of pushing without descent - where OA position was confirmed but anterior lip was appreciated. Patti was encouraged to try to breathe through contractions to allow for complete dilation. Involuntary pushing continued, where the lip could be inconsistently reduced. She then got an epidural and was able to rest for 1 hour, after which she was found to be complete and 0 station. Pushing was resumed for about 45 minutes, during which there was no descent and category 2 FHR tracing occurred. She had recurrent variable decelerations with delayed return to baseline. Over time a rise in the baseline was noted with periods of minimal variability. Ob consult was requested at 2114, where I recommended repeat delivery in the setting of category 2 FHR tracing remote from delivery. Patient expressed understanding and was in agreement. We discussed risks of intrapartum including bleeding (T/S on file), infection and damage to surrounding structures. We discussed particularly increased risk of bleeding and difficult extraction with second stage . Written consent was obtained. History History 2 Elective abortions Para 1 Spontaneous abortions Hx # Term Pregnancies 1 Ectopic pregnancies Hx # Pregnancies Multiple births Number of Living Children 1 Past Pregnancies Del. Date GA/Weeks Outcome Route wt Inf Gender Labor Lgth Anesthesia Location Provider Compli 11/20/21 40 live - full term low transverse 9 lb 6 oz Male [address] [facility] Blood type: 0 (-) negative GBS status: negative OB Labs: Lab Assessment Start: 11/20/23 16:22 Freq: ONCE Status: Complete Protocol: PC.OBGBS Activity Type Activity Date Activity User E-sign Co-sign Detail Recorded Client Recorded Date Recorded By Document 11/20/23 17:03 CHEMA [id number] 11/20/23 17:04 CHEMA 11/20/23 17:03 Lab Assessment GBS Status negative GBS Additional Criteria None No Treatment Needed OK Are Labs Available Yes Maternal Blood Type O Maternal RH Factor Negative Evaluate Maternal Rubella Immune Status Immune Hepatitis B Surface Antigen Negative Maternal HIV Status Negative Maternal Syphillis (RPR) Status Negative [facility] Medical History (Updated 11/20/23 @ 18:57 by Angelia Gutiérrez CNM) History of urinary tract infection ?Z87.440 - Personal history of urinary (tract) infections (ICD-10) Surgical History Status post primary low transverse section (11/20/21) ?Z98.891 - History of uterine scar from previous surgery (ICD-10) Family History (Updated 10/25/23 @ 11:04 by Kanwal Messer MD) Family/Other Type 1 diabetes mellitus Paternal Grandfather Type 2 diabetes mellitus Mother Graves' disease Sister Melanoma Social History Narrative: SOCIAL Education: PHD in Moldovan literature 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 Exercise 4 times a week running and weights Lifetime nonsmoker 3 alcoholic drinks a week Smoking Status: Never smoker Do you use any of these nicotine containing products: None Second hand tobacco smoke exposure: No How often do you have a drink containing alcohol: 2-4 times a month How many standard drinks containing alcohol do you have on a typical day: 1 or 2 How often do you have six or more drinks on one occasion: Never AUDIT-C Alcohol total score: 2 Non-prescribed substance use: denies use Little interest or pleasure in doing things: not at all Feeling down, depressed, or hopeless: not at all service: No Meds Home Medications and Allergies Home Medications Medication Instructions Recorded Confirmed Type ascorbate calcium (vitamin C) 500 500 mg PO QDAY 04/08/23 11/19/23 History mg tablet docosahexaenoic acid 200 mg mg PO 04/08/23 11/19/23 History capsule ( DHA) lysine 1,000 mg tablet 1,000 mg PO QDAY 04/08/23 11/20/23 History zinc gluconate 30 mg tablet 30 mg PO ONCE 04/08/23 11/20/23 History calcium carbonate 600 mg calcium 600 mg PO QDAY 10/03/23 11/19/23 History (1,500 mg) tablet (Calcium) magnesium 250 mg tablet 250 mg PO QDAY 10/03/23 11/20/23 History Allergies Allergy/AdvReac Type Severity Reaction Status Date / Time No Known Allergies Allergy Unknown Verified 11/19/23 11:16 OB - H&P: Exam Physical Exam: Vital signs: Temp Pulse Resp BP Pulse Ox 98 F 91 16 100/56 L 99 11/20/23 18:33 11/20/23 21:20 11/20/23 17:29 11/20/23 21:20 11/20/23 20:26 OB - Results Labs Labs: Short CBC 11/20/23 Range/Units 17:17 WBC 14.47 H (4.50-11.00) K/uL Hgb 13.8 (12.0-16.0) gm/dL Hct 41.0 (33.0-51.0) % Plt Count 238 (140-440) K/uL OB - CN: A/P Assessment and Plan (1) Pain during labor: Status: Acute (2) Post-dates : Status: Acute (3) Uterine scar from previous delivery affecting : Status: Acute (4) Rh negative status during : Status: Acute Plan Plan to proceed with repeat delivery in the setting of nonreassuring FHR tracing remote from delivery. ANC complicated by TOLAC and Rh negative status. - Written consent obtained for repeat - Plan perioperative ancef and azithromycin - T/S on file, BT O negative with plan for cord blood - GBS negative - Pediatrics to attend deliver for unplanned with category 2 FHR
[2023-11-20] MEDS: CEFAZOLIN 2 GM INJ IVP (21:50)
--- NOTE | 2023-11-20 23:17 | P.ANES_ITS ---
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
--- NOTE | 2023-11-20 23:18 | W.PM.NB ---
Nerve Block Nerve Block Time Seen by Provider: 02:30 Date Seen: 11/20/23 Type of block requested by surgeon for post-operative analgesia: TAP Side: bilateral Time out performed: Yes Verification of patient name: Yes Verification of date of : Yes Site marking: site marked Name of person performing procedure: Lionel Stepany Continuous monitoring Was continuous monitoring of O2 sat, B/P, manager monitoring, recorded every 15 minutes?: Yes Procedure Checklist: sterile prep, needles and gloves Ultrasound guided. Images saved: Yes Medications given in 5ml increments after negative aspiration: Marcaine %: 0.25 mL: 30 and Exparel mL: 10 Patient tolerated procedure well: Yes Block Charges Block Charge (with Pro Fee): TAP Bilateral Use of Ultrasound Machine for Block: Yes- US Guidance/pain block
[2023-11-21] VITALS (35 sets, daily range): BP systolic 91–114; BP diastolic 55–70; PULSE 70–101; RESP 16–18; TEMP 36.4–36.8; O2SAT 94–98
[2023-11-21] MEDS: LACTATED RINGERS 1000 ML 1,000 ML 1100 ML IV (00:45)
[2023-11-21] MEDS: KETOROLAC 30 MG/ML inj IVP ×4 (04:36→22:05)
--- NOTE | 2023-11-21 08:15 | PM.OBPNVD1 ---
OB - PN:Subj Subjective Time Seen by Provider: 08:15 Date Seen: 11/21/23 Interval history: Patti is a 33 y.o. who was admitted to L & D for active labor/TOLAC.? She had an uncomplicated repeat .? ? ? Narrative: The patient feels well.? The pain is well controlled with current medications.? She has no new complaints.? She is breast feeding and reports things are going well.? the patient has done well.? Vitals have been stable.? She has remained afebrile.? She has been having problems with nausea, but when the RN attempted to give her zofran this morning she was sleeping, so held at that time. She feels this may be related to lack of food. Encouraged to take zofran and then eat and see how she does this morning.? Her navas catheter is still in at this time. She is not yet passing gas and has not had a bowel movement.? She has not ambulated yet.? Has Small amount of rubra lochia.? OB - PN: Obj Exam Physical Exam: Vital signs: Temp Pulse Resp BP Pulse Ox O2 Del Method 98.3 F 74 16 109/63 94 Room Air 11/21/23 03:51 11/21/23 03:51 11/21/23 06:20 11/21/23 03:51 11/21/23 03:51 11/21/23 03:51 Narrative: VSS.? Afebrile? GENERAL APPEARANCE:? normal affect, alert, no distress? MOOD:? appropriate? HEENT: normocephalic, neck supple, full ROM? CHEST:? Symmetrical chest wall movement.? Normal respiratory effort.? Clear to auscultation? HEART:? regular rate and rhythm? ABDOMEN:? soft, non-tender. Uterine fundus is firm, 1 below Umbilicus, Midline and is appropriate for the stage of recovery.? Bowel sounds hypoactive. EXTREMITIES:? normal and no edema? SKIN: warm, dry.? Dressing on, clean/dry/intact.? No signs of infection noted.? Urinary Catheter Management: Urethral: Cath placed during this visit: yes Urethral indwelling: Yes Reason for continuing: surgical procedure Insertion date: 11/20/23 OB - PN: Obj Data Labs Labs: Laboratory Results - last 24 hr 11/20/23 11/21/23 17:17 07:06 WBC 14.47 H RBC 4.30 Hgb 13.8 11.0 L Hct 41.0 MCV 95 MCH 32 MCHC 34 RDW Coeff of Martine 12.3 Plt Count 238 Neut % (Auto) 87.3 H Lymph % (Auto) 7.3 L [place] % (Auto) 5.1 Eos % (Auto) 0.1 Baso % (Auto) 0.1 Neut # (Auto) 12.60 H Lymph # (Auto) 1.10 [place] # (Auto) 0.70 Eos # (Auto) 0.00 Baso # (Auto) 0.00 Abs Immat Gran (auto) 0.00 Imm/Tot Granulo (auto) 0.1 Blood Type O Negative Antibody Screen POSITIVE OB - PN: A/P Delivery Assessment and Plan (1) S/P repeat low transverse : Status: Acute (2) Lactating mother: Status: Acute (3) Failed trial of labor following previous , delivered: Status: Acute (4) Uterine scar from previous delivery affecting : Status: Acute (5) Rh negative status during : Status: Acute Plan day: 1 Plan: routine care Comments: Assessment/Plan? G 2 P 2 status post uncomplicated repeat following a TOLAC.? ?? 1.? Continue route PP cares? 2.? .? May see if desired? 3.? Anticipate discharge home tomorrow or the following day per pt preference? 4.? Acute anemia.? Iron supplement ordered ?
[2023-11-21] MEDS: ONDANSETRON 2 MG/ML inj 4 MG IV (08:27)
[2023-11-21] MEDS: SODIUM CHLORIDE 0.9 % (FLUSH) 10 ML SYRINGE IVF ×5 (08:28→17:51)
[2023-11-21] MEDS: METOCLOPRAMIDE HCL 5 MG/ML INJ 10 MG IVP ×2 (11:31→17:51)
[2023-11-21] MEDS: DOCUSATE SODIUM 100 MG CAPSULE PO (16:29)
[2023-11-22 01:03] VITALS: BP 95/55; PULSE 91; RESP 16; TEMP 36.8; O2SAT 98
[2023-11-22] MEDS: KETOROLAC 30 MG/ML inj IVP (04:15)
--- NOTE | 2023-11-22 07:41 | P.OBPN_ITS ---
OB - PN:Subj Subjective Time Seen by Provider: 07:43 Date Seen: 11/22/23 Interval history: Patti is a 33 y.o. who was admitted to L & D for active labor/TOLAC.? She had an uncomplicated repeat .? ? ? Patient comments OB post-: pain well controlled [place] infant status: [place] feeding status: exclusively Narrative: The patient feels well.? The pain is well controlled with current medications.? She has no new complaints.? Urinary output is adequate and she is voiding without difficulty.? Has a good appetite, is tolerating a general diet, she has not pass flatus and bowel movement yet.?Taking stool softener as ordered and encouraged ambulation. Has small amount of rubra lochia.?Abdominal incision is open to air and well approximated without drainage or redness. Small bruising noted along the left side of incision. She is ambulating well with no difficulty. ? OB - PN: Obj Exam Physical Exam: Vital signs: Temp Pulse Resp BP Pulse Ox O2 Del Method 98.3 F 91 16 95/55 L 98 Room Air 11/22/23 01:03 11/22/23 01:03 11/22/23 01:03 11/22/23 01:03 11/22/23 01:03 11/22/23 01:03 Narrative: GENERAL APPEARANCE:? normal affect, alert, no distress? MOOD:? appropriate? CHEST:? clear to auscultation and percussion? HEART:? regular rate and rhythm? ABDOMEN:? soft, non-tender the uterine fundus is firm at umbilicus, and is appropriate for the stage of recovery.? PERINEUM:? mild edema of the perineum EXTREMITIES:? normal and no edema? Constitutional: Constitutional: no acute distress Routine Respiratory Exam: Respiratory: Present CTA bilaterally Routine Cardiovascular Exam: Cardiovascular: Present RRR, S1 and S2 Routine Abdominal Exam: Abdominal: Present soft Fundus: Present firm Routine Exam: External: Present swelling (labia ) Routine Skin Exam: Comments: left incisional bruising Routine Neurological Exam: Neurological: Present alert and oriented X3 Wound Management: Method: adhesive Urinary Catheter Management: Urethral: Cath placed during this visit: yes, but has since been removed by the nurse Urethral indwelling: Yes Reason for continuing: decision to DC catheter Insertion date: 11/20/23 Removal date: 11/21/23 Removal time: 15:05 OB - PN: Obj Data Labs Labs: Laboratory Results - last 24 hr 11/20/23 11/21/23 17:17 07:06 Antibody Identification Anti-D Screen Negative OB - PN: A/P Delivery Assessment and Plan (1) S/P repeat low transverse : Status: Acute (2) Lactating mother: Status: Acute (3) Failed trial of labor following previous , delivered: Status: Acute (4) Rh negative status during : Status: Acute (5) care following delivery: Status: Acute Plan day: 2 Plan: routine care Comments: Anticipate discharge home tomorrow.
[2023-11-22] MEDS: DOCUSATE SODIUM 100 MG CAPSULE PO ×2 (08:29→17:18)
[2023-11-22] MEDS: ACETAMINOPHEN 500 MG TABLET 1000 MG PO ×3 (08:29→20:30)
[2023-11-22 08:30] VITALS: BP 112/70; PULSE 86; RESP 16; TEMP 36.8; O2SAT 97
[2023-11-22] MEDS: METOCLOPRAMIDE HCL 5 MG/ML INJ 10 MG IVP (08:30)
[2023-11-22] MEDS: IBUPROFEN 600 MG TABLET PO ×2 (11:49→17:44)
--- OUTSIDE RECORDS SUMMARY | 2023-11-22 14:20 | XMS_ITS | Clinical Summary ---
Author Name Unknown Organization [facility] Address [place], [place] [address] Care Team Providers Care Ditch Tender Name Role Phone Clinic, No Pcp Or [...] Comments Blood Pressure 130/70 10/13/2022 12:08 PM WATCHMAKING TEACHER Pulse 75 10/13/2022 12:08 PM WATCHMAKING TEACHER Temperature 36.6 ??C (97.8 ??F) 10/13/2022 12:[address] Respiratory Rate 16 10/13/2022 12:08 PM WATCHMAKING TEACHER Oxygen Saturation 99% 10/13/2022 12:08 PM WATCHMAKING TEACHER Inhaled Oxygen Concentration - - Weight 55.3 kg (122 lb) 10/13/2022 12:08 PM WATCHMAKING TEACHER Height - - Body Mass Index - [...] age to complete this topic Care Teams Ditch Tender Relationship Specialty Start Date End Date Clinic, No Pcp Or . PCP - General 05/24/22
[2023-11-22 16:30] VITALS: BP 109/68; PULSE 94; RESP 18; TEMP 36.7; O2SAT 97
[2023-11-22 23:09] VITALS: BP 115/76; PULSE 82; RESP 16; TEMP 36.6; O2SAT 98
[2023-11-23] MEDS: IBUPROFEN 600 MG TABLET PO ×2 (00:48→06:37)
[2023-11-23] MEDS: ACETAMINOPHEN 500 MG TABLET 1000 MG PO ×2 (03:44→09:39)
--- NOTE | 2023-11-23 08:00 | P.DS_ITS ---
DS: Providers Provider Time Seen by Provider: 08:00 Date Seen: 11/23/23 Date of admission: 11/20/23 16:20 Primary care physician: Magaly Fuentes MD Admitting Clinician: Angelia Gutiérrez CNM Consults: 11/20/23 21:18 Consult to Physician [CONS] Routine Comment: Consulting Provider: Maribel Nichols Has provider been notified: Yes Attending Physician on discharge: Angelia Gutiérrez CNM Date of Discharge: 11/23/23 DS: Diagnosis Discharge Diagnosis (1) S/P repeat low transverse : Status: Acute Exam Narrative: Exam Narrative: GENERAL APPEARANCE: Pleasant, , well-groomed woman in no acute distress. VITAL SIGNS: as noted in nursing notes HEAD: Normocephalic, atraumatic. THYROID: no masses, nodularity, tenderness or enlargement. LUNGS: Clear to auscultation bilaterally without wheezes, rales or rhonchi. HEART: Regular rate and rhythm with normal S1 and S2. No gallop, rub or murmur. ABDOMEN: Gravid. Soft, nontender, nondistended, with normal bowels sounds throughout. INCISION: Clean, dry and intact with sutures and skin adhesive gel. EXTREMITIES: No cyanosis, clubbing, or edema. No varicosities. NEUROLOGIC: Normal gait and balance. Normal deep tendon reflexes at bilateral patella 2+/2, equal without clonus. PSYCHIATRIC: alert and oriented x3. Normal speech pattern, eye contact and affect. SKIN: Warm, dry, and well perfused. Good turgor. No lesions, nodules or rashes. Const: Vital Signs, click to edit/add: Vital Signs - 24 hr 11/22/23 08:30 11/22/23 16:30 11/22/23 23:09 Temperature 98.3 F 98.0 F 97.8 F Pulse Rate [Pulse Oximeter] 86 94 82 Respiratory Rate 16 18 16 Blood Pressure [Ri ght Arm] 112/70 109/68 115/76 Pulse Oximetry 97 97 98 Oxygen Delivery Me thod Room Air Room Air Room Air OB - DS: Summary Hospital Course Hospital Course: The patient is a 33 year old G 2 P 1 at 41 weeks gestation that was admitted to the Center on 11/20/23 for induction of late. She had an on complex repeat delivery after unsuccessful trial of labor after . She delivered a viable female . She is breast feeding. the patient has done well. Peripartum Data delivery method: Repeat Section Procedures: Procedures Operation Date: 11/20/23 21:45 Actual Procedure Side Surgeon p Section Maribel Nichols MD [place] Gender: Female Time Spent with Patient Time attestation: Total time spent providing and/or coordinating discharge services: Discharge Plan Discharge Disposition: Home, Self-Care Date of Admission: 11/20/23 16:20 Attending Provider on Discharge: Clari Mcleod Consulting Providers: Maribel Nichols Primary Care Provider: Magaly Fuentes Condition: Stable Anticipated Discharge Date/Time: 11/23/23 11:30 Discharge Medications: New docusate sodium 100 mg Capsule 100 mg PO DAILY Qty: 100 0RF ibuprofen 600 mg Tablet 600 mg PO Q6H PRN (Reason: Pain) Qty: 30 0RF oxycodone 5 mg Tablet 5 - 10 mg PO 3XD PRN (Reason: Pain) Qty: 21 0RF Continued DHA 200 mg capsule 200 mg PO DAILY lysine 1,000 mg tablet 1,000 mg PO QDAY zinc gluconate 30 mg tablet 30 mg PO ONCE ascorbate calcium (vitamin C) 500 mg tablet 500 mg PO QDAY calcium carbonate [Calcium 600] 600 mg calcium (1,500 mg) tablet 600 mg PO QDAY magnesium 250 mg tablet 250 mg PO QDAY Discharge Orders: Discharge Order (Routine); Ordered 11/23/23 Ordered By: Clari Mcleod Patient Education: (DC) Additional Instructions: ACTIVITY RESTRICTIONS: * Nothing vaginally for 6 weeks: no tampons/intercourse * No driving while taking narcotic pain medication during the day. 1-2 weeks. * Lifting restriction: Maximum of 20 pounds for 6 weeks. * High impact or core exercises: 6 weeks. * Submerge the incision in water (bath/pool/mcelroy): 2 weeks. * Off of work/school for a minimum of 8 weeks NO RESTRICTIONS for: * Walking * Going up/down stairs * Showering * Passenger in a car/motor vehicle Symptoms to report to doctor: -Bleeding that saturates more than one pad per hour ?-Passing clots larger than the size of a golf ball ?-Pain not relieved by prescribed medication ?-Fever above 100.4 degrees Fahrenheit ?-A foul vaginal odor ?-Difficulty in emotions, mood and functions ?-Thoughts of hurting yourself and/or ?-Painful, reddened area in your breast ?-Any drainage, redness or tenderness in your IV/epidural site ?-Severe headache that doesn't improve after taking medications ?-Changes in vision, including temporary loss of vision, blurred vision, and/or light sensitivity ?-Upper abdominal pain (usually under ribs on the right side) ?-Decrease in urination or painful, frequent urinating ?-Chest pain ?-Shortness of breath ?-Tenderness or pain with redness and/swelling in the calf(s) of your leg Follow-up: 1. [facility] in 2 weeks for incision check, screening for depression/anxiety, discussion of contraceptive options and answer questions on care. 2. A 6 week visit for an annual physical exam. consultation services are available to all mothers and babies for the first year after delivery.? To make an appointment, please call [phone]. Discharge Diet: Regular Follow Up Appointments: Magaly Fuentes MD [Primary Care Provider] - [facility] [Provider Group] Forms: MyHealth Info Instructions
[2023-11-23 08:21] VITALS: BP 105/67; PULSE 74; RESP 16; TEMP 36.8; O2SAT 96
[2023-11-23] MEDS: DOCUSATE SODIUM 100 MG CAPSULE PO (08:25)
--- NOTE | 2023-11-23 20:35 | PC.NURSE ---
patient's called and stated that there is some bleeding coming out of his 's incision. He described it as a pin prick size hole that keeps oozing. I transferred him to the [facility] clinic phone number and told him to select the option to speak with an pupil personnel worker provider.
--- NOTE | 2023-11-25 10:31 | SUR.OPER ---
Verified timing with Gail HOWARD.
== END 2023-11-23 11:23 | disposition home or self-care (01) | DRG 788 ==
LOC: OB OUT 16:37 → OB 21:28
PROVIDERS: Obstetrics & Gynecology; Admitting Provider Advanced Practice Midwife; PCP Family Medicine; Visit Provider Advanced Practice Midwife
PROC: 10D00Z1 Extraction of Products of Conception, Low, Open Approach (ICD-10-PCS; CPT 59514; principal; 2023-11-20 21:30)
DX: O48.0 Post-term pregnancy (principal); O26.893 Other specified pregnancy related conditions, third trimester; Z67.41 Type O blood, Rh negative; O34.211 Maternal care for low transverse scar from previous cesarean delivery; O76 Abnormality in fetal heart rate and rhythm complicating labor and delivery; O66.41 Failed attempted vaginal birth after previous cesarean delivery; O32.4XX0 Maternal care for high head at term, not applicable or unspecified; G89.18 Other acute postprocedural pain; R11.0 Nausea; Z3A.41 41 weeks gestation of pregnancy; Z37.0 Single live birth
CPT/HCPCS: 01967; 01968; 36415; 51701; 64488; 76815; 76942; 85018; 85025; 85461; 86850; 86870; 86880; 86900; 86901; 88307; 99140; A9270; C9290; J0456; J0665; J0690; J1100; J1885; J2274; J2371; J2405; J2590; J2765; J2791; J2795; J3010; J7050; J7120

== ENCOUNTER 2023-11-29 13:08 | Outpatient (CLI) | payer MEDICAID, SELFPAY ==
--- OUTSIDE RECORDS SUMMARY | 2023-11-29 13:12 | XMS_ITS | Clinical Summary ---
Author Name Unknown Organization [facility] Address [place], [place] [address] Care Team Providers Care Bogger Operator Name Role Phone Clinic, No Pcp Or [...] Comments Blood Pressure 130/70 10/13/2022 12:08 PM BARREL TESTER Pulse 75 10/13/2022 12:08 PM BARREL TESTER Temperature 36.6 ??C (97.8 ??F) 10/13/2022 12:[address] Respiratory Rate 16 10/13/2022 12:08 PM BARREL TESTER Oxygen Saturation 99% 10/13/2022 12:08 PM BARREL TESTER Inhaled Oxygen Concentration - - Weight 55.3 kg (122 lb) 10/13/2022 12:08 PM BARREL TESTER Height - - Body Mass Index - [...] age to complete this topic Care Teams Bogger Operator Relationship Specialty Start Date End Date Clinic, No Pcp Or . PCP - General 05/24/22
== END 2023-11-29 13:09 | disposition home or self-care (01) ==
LOC: NFLDREF 13:10
PROVIDERS: PCP Family Medicine; Visit Provider Obstetrics & Gynecology
DX: R30.0 Dysuria (principal)
CPT/HCPCS: 87086

== ENCOUNTER 2024-01-01 10:49 | Outpatient (CLI) | payer MEDICAID, SELFPAY ==
--- NOTE | 2024-01-01 11:30 | US_ITS ---
Patient: ALBINO BOWEN Facility:?[facility] Patient ID:?[id number] Site Patient ID:?[id number]. Site :?[id number] Study:?US-Pelvis PELVIS TA & TV-01/01/2024 11:30:15 AM Ordering Physician:EDMUND FREY M.D. Final Report: INDICATION: Other immediate hemorrhage COMPARISON: 01/02/2022 TECHNIQUE: 2D hill scale and color Doppler images were acquired of the pelvis using a transabdominal and transvaginal approach. FINDINGS: Sonographic images demonstrate a normal size and smooth outer contour of the uterus. Uterus measures 9.0 cm in length by 5.3 cm in AP diameter by 6.7 cm in transverse dimension. section scar noted. The endometrial lining appears normal and measures 4 mm in composite thickness. The right ovary measures 3.1 x 1.7 x 1.9 cm in size and the left ovary measures 2.9 x 1.7 x 1.7 cm. The ovaries demonstrate normal arterial and venous blood flow on color Doppler analysis. There are no suspicious fluid collections within the cul-de-sac. Trace physiologic free fluid noted. IMPRESSION: Normal pelvic ultrasound. No evidence of retained products of conception. No abnormal vascularity. Dictated by Darnell Peralta MD @ 01/01/2024 12:02:14 PM Signed by:?Darnell Peralta MD @01/01/2024 12:02:14 PM (Electronic Signature)
== END 2024-01-01 10:50 | disposition home or self-care (01) ==
LOC: US 10:50
PROVIDERS: PCP Family Medicine; Visit Provider Obstetrics & Gynecology
DX: O72.1 Other immediate postpartum hemorrhage (principal)
CPT/HCPCS: 76830; 76856

== ENCOUNTER 2024-08-05 02:24 | Emergency (ER) | payer MEDICAID, SELFPAY ==
[2024-08-05 02:35] VITALS: BP 121/83; PULSE 70; RESP 16; TEMP 37.1; O2SAT 100; BMI 17.5
[2024-08-05 02:35] LABS: Appearance Urine Slightly Cloudy (Clear); Bilirubin Urine Negative (Negative); Blood Urine Negative (Negative); Color Urine Yellow (Yellow); Glucose Urine Negative (Negative); Ketones Urine Negative (Negative); Leukocyte Esterase Urine 1+ (Negative); Nitrite Urine Negative (Negative); Protein Urine Negative (Negative); Urobilinogen Urine 0.2 (0.2-1.0)
[2024-08-05 02:42] LABS: RBC Urine 0-2 (0-2)
[2024-08-05 02:43] LABS: Bacteria Urine Moderate; Squamous Epithelial Cell Urine Few (None-Few)
--- OUTSIDE RECORDS SUMMARY | 2024-08-05 02:52 | XMS_ITS | Clinical Summary ---
Author Organization [facility] Address [place], [place] [address] Care Team Providers Care Whipper Name Role Phone Clinic, No Pcp Or [...] Comments Blood Pressure 130/70 10/13/2022 12:08 PM ASSISTANT TERMINAL MANAGER Pulse 75 10/13/2022 12:08 PM ASSISTANT TERMINAL MANAGER Temperature 36.6 ??C (97.8 ??F) 10/13/2022 12:[address] Respiratory Rate 16 10/13/2022 12:08 PM ASSISTANT TERMINAL MANAGER Oxygen Saturation 99% 10/13/2022 12:08 PM ASSISTANT TERMINAL MANAGER Inhaled Oxygen Concentration - - Weight 55.3 kg (122 lb) 10/13/2022 12:08 PM ASSISTANT TERMINAL MANAGER Height - - Body Mass Index - - Plan of Treatment Health Maintenance Due Date Last Done Comments Tdap 2001 Depression screening for age 12+ 2002 HIV for age 15-65 2005 BMI (ht and wt on same day) for age 18+ 2008 Hepatitis C screening for ag e 18-79 2008 Tetanus booster 2010 COVID-19 vaccine series (2023- season) 2024 Influenza for age 9-49 06/21/2024 Pap test for age 21-65 01/01/2025 2, 01/01/2022 Pneumococcal series for age 6-64 Aged Out No longer eligible b ased on patient's age to complete this topic Procedures Procedure Name Priority Date/Time Associated Diagnosis Comments HPV HIGH RISK Routine 01/01/2022 10:20 AM CDT from Last 3 Months or Most Recently Relevant to Health Maintenance Results * HPV HIGH RISK (01/01/2022 10:20 AM CDT) TYPE 16 Negative Negative 01/03/2022 11:23 AM CDT [facility] TYPE 18 Negative Negative 01/03/2022 11:23 AM CDT [facility] OTHER HIGH RISK TYPES Negative Negative 01/03/2022 11:23 AM CDT [facility] Other (Cervical/Vagina l) 01/01/2022 10:20 AM CDT 01/02/2022 9:00 AM CDT Narrative [facility] - 01/03/2022 11:23 AM CDT HPV types 16, 18, 31, 33, 35, 39, 45, 51, 52, 56, 58, 59, 66 and 68 DNA were undetectable or below the pre-set threshold. Methodology: Iris L[address] 4800 HPV Test Kanwal Messer MD MICROBIOLOGY [facility] [address] [place] [address], from Last 3 Months or Most Recently Relevant to Health Maintenance Care Teams Whipper Relationship Specialty Start Date End Date Clinic, No Pcp Or . PCP - General 05/24/22
--- NOTE | 2024-08-05 02:53 | ED.FEMALEGU ---
HPI - Female Genitourinary General Date Seen: 08/05/24 Chief complaint: Urogenital Problems, Female Stated complaint: poss uti Time Seen by Provider: 08/05/24 02:43 Source: patient Mode of arrival: ambulatory Limitations: no limitations History of Present Illness HPI Narrative: Patient is a 33-year-old female comes in in the middle of the night with 8 hours of UTI symptoms. She was unable to sleep due to the discomfort which is why she came in during the night. No fevers or chills. No nausea or vomiting. She has had urinary tract infections in the past but not for the past two years. No hematuria. She has some urgency and frequency. She took azo without improvement. Related Data Home Medications ?Medication ?Instructions ?Recorded ?Confirmed ascorbate calcium (vitamin C) 500 500 mg PO QDAY 04/08/23 06/10/24 mg tablet lysine 1,000 mg tablet 1,000 mg PO QDAY 04/08/23 06/10/24 zinc gluconate 30 mg tablet 30 mg PO ONCE 04/08/23 06/10/24 multivitamin 1 tab PO QAM 12/06/23 06/10/24 Previous Rx's ?Medication ?Instructions ?Recorded sulfamethoxazole 800 1 tab PO BID #10 tabs 08/05/24 mg-trimethoprim 160 mg tablet (Bactrim DS) Allergies Allergy/AdvReac Type Severity Reaction Status Date / Time No Known Allergies Allergy Unknown Verified 06/10/24 09:26 Review of Systems Narrative: Review of systems is outlined above otherwise noted to be negative. PFSH PFS Medical History Internal hemorrhoid ?K64.8 - Other hemorrhoids (ICD-10) Post-dates ?O48.0 - Post-term (ICD-10) History of urinary tract infection ?Z87.440 - Personal history of urinary (tract) infections (ICD-10) Surgical History S/P repeat low transverse (11/20/23) ?Z98.891 - History of uterine scar from previous surgery (ICD-10) Status post primary low transverse section (11/20/21) ?Z98.891 - History of uterine scar from previous surgery (ICD-10) Family History Family/Other Type 1 diabetes mellitus Paternal Grandfather Type 2 diabetes mellitus Mother Graves' disease Sister Melanoma Social History Narrative: SOCIAL Education: PHD in [place] literature 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, 1 child Exercise 4 times a week running and weights Lifetime nonsmoker 3 alcoholic drinks a week What is your current living situation?: I presently have a place to live Problems where you live: no known problems In the past 12 months, utilities in danger of being shut off: no In past 12 months, lack of transportation kept you from medical appts, meetings, work, or getting things needed for daily living: no In the past 12 mos, have been you worried that your food would run out before you had money to buy more?: never true In the past 12 mos, the food you bought just didn't last and you didn't have money to buy more?: never true Smoking Status: Never smoker Do you use any of these nicotine containing products: None Second hand tobacco smoke exposure: No How often do you have a drink containing alcohol: 2-4 times a month How many standard drinks containing alcohol do you have on a typical day: 1 or 2 How often do you have six or more drinks on one occasion: Never AUDIT-C Alcohol total score: 2 Non-prescribed substance use: denies use How often does anyone, including family, friends and others, physically hurt you: never How often does anyone, including family, friends and others, insult or talk down to you: never How often does anyone, including family, friends and others, threaten you with harm: never How often does anyone, including family, friends and others, scream or curse at you: never Little interest or pleasure in doing things: not at all Feeling down, depressed, or hopeless: not at all service: No Exam Narrative: Exam Narrative: Vitals noted. HEENT: Conjunctiva clear. Heart: Regular rate and rhythm without murmur. Abdomen: Soft and nontender. No guarding, rigidity, rebound. Bowel sounds are normal. No palpable masses. No CVA or suprapubic tenderness. Extremities: No cyanosis or edema. Skin: No abnormalities noted of the exposed skin. Neurologic: Awake, alert, fully oriented. Neurologic exam is nonfocal. Const: Vital Signs, click to edit/add: Vital Signs - 24 hr 08/05/24 02:35 Temperature 98.7 F Pulse Rate [Pulse Oximeter] 70 Respiratory Rate 16 Blood Pressure [Ri ght Upper Arm] 121/83 Pulse Oximetry 100 Oxygen Delivery Me thod Room Air Course Course ED Course: Patient appears well. Her urinalysis shows 10-25 white blood cells and moderate bacteria. Urine culture is pending. She is given Bactrim DS one tablet in the ED. Vital Signs Vital signs: Initial Vital Signs Temperature 98.7 F 08/05/24 02:35 Temperature Source Temporal Artery Scan 08/05/24 02:35 Pulse Rate 70 08/05/24 02:35 Respiratory Rate 16 08/05/24 02:35 Blood Pressure 121/83 08/05/24 02:35 Blood Pressure Mean 95 08/05/24 02:35 Blood Pressure Position Sitting 08/05/24 02:35 Pulse Oximetry 100 08/05/24 02:35 Oxygen Delivery Method Room Air 08/05/24 02:35 Vital Signs Temperature 98.7 F 08/05/24 02:35 Pulse Rate 70 08/05/24 02:35 Respiratory Rate 16 08/05/24 02:35 Blood Pressure 121/83 08/05/24 02:35 Pulse Oximetry 100 08/05/24 02:35 Oxygen Delivery Method Room Air 08/05/24 02:35 Temperature 98.7 F 08/05/24 02:35 Pulse Rate 70 08/05/24 02:35 Respiratory Rate 16 08/05/24 02:35 Blood Pressure 121/83 08/05/24 02:35 Pulse Oximetry 100 08/05/24 02:35 Oxygen Delivery Method Room Air 08/05/24 02:35 MDM - Female Genitourinary Lab Data Labs: Lab Results 08/05/24 Range/Units 02:28 Urine Color Yellow (Yellow) Urine Appearance Slightly Cloudy A (Clear) Urine pH 7.0 (5.0-8.5) Ur Specific [place] 1.010 (1.000-1.030) Urine Protein Negative (Negative) Urine Glucose (UA) Negative (Negative) Urine Ketones Negative (Negative) Urine Blood Negative (Negative) Urine Nitrite Negative (Negative) Urine Bilirubin Negative (Negative) Urine Urobilinogen 0.2 (0.2-1.0) Ur Leukocyte Esterase 1+ A (Negative) Urine RBC 0-2 (0-2) Urine WBC 10-25 A (0-5) Ur Squamous Epith Cells Few (None-Few) Urine Bacteria Moderate A (None) Discharge Plan Discharge Clinical Impression: UTI (urinary tract infection) Patient Disposition: Home, Self-Care Condition: Stable Additional Instructions: Push fluids, Bactrim DS twice daily for five days, Tylenol for discomfort. Follow-up if worsening or not improving. Prescriptions: New sulfamethoxazole-trimethoprim [Bactrim DS] 800-160 mg tablet 1 tab PO BID Qty: 10 0RF No Action lysine 1,000 mg tablet 1,000 mg PO QDAY zinc gluconate 30 mg tablet 30 mg PO ONCE ascorbate calcium (vitamin C) 500 mg tablet 500 mg PO QDAY multivitamin Tablet 1 tab PO QAM Follow Up/Referrals: Magaly Fuentes MD [Primary Care Provider] - Stand Alone Forms: [employer] Info Instructions
== END 2024-08-05 03:02 | disposition home or self-care (01) ==
PROVIDERS: Emergency Provider Family Medicine; PCP Family Medicine
DX: N39.0 Urinary tract infection, site not specified (principal)
CPT/HCPCS: 81001; 87086; 87186; 99281; 99283

== ENCOUNTER 2024-08-31 00:49 | Emergency (ER) | payer MEDICAID, SELFPAY ==
[2024-08-31 00:58] VITALS: BP 130/70; PULSE 65; RESP 16; TEMP 36.7; O2SAT 99; BMI 17.5
[2024-08-31 00:58] LABS: Appearance Urine Cloudy (Clear); Bilirubin Urine Negative (Negative); Blood Urine 2+ (Negative); Color Urine Yellow (Yellow); Glucose Urine Negative (Negative); Ketones Urine Negative (Negative); Leukocyte Esterase Urine 2+ (Negative); Nitrite Urine Positive (Negative); Protein Urine Negative (Negative); Urobilinogen Urine 0.2 (0.2-1.0)
[2024-08-31 01:06] LABS: Bacteria Urine Moderate; Squamous Epithelial Cell Urine Few (None-Few)
--- OUTSIDE RECORDS SUMMARY | 2024-08-31 01:15 | XMS_ITS | Clinical Summary ---
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 TYPE 18 Negative Negative 01/03/2022 11:23 AM CDT [facility] OTHER HIGH RISK TYPES Negative Negative 01/03/2022 11:23 AM CDT [facility] Other (Cervical/Vagina l) 01/01/2022 10:20 AM CDT 01/02/2022 9:00 AM CDT Narrative [facility] - 01/03/2022 11:23 AM CDT HPV types 16, 18, 31, 33, 35, 39, 45, 51, 52, 56, 58, 59, 66 and 68 DNA were undetectable or below the pre-set threshold. Methodology: Iris [address] 4800 HPV Test Kanwal Messer MD MICROBIOLOGY [facility] [address] [place] [address], from Last 3 Months or Most Recently Relevant to Health Maintenance Care Teams Baggage Handler Relationship Specialty Start Date End Date Clinic, No Pcp Or . PCP - General 05/24/22
--- NOTE | 2024-08-31 01:36 | ED.GENADULT ---
HPI - General Adult General Chief complaint: Urogenital Problems, Female Stated complaint: UTI Time Seen by Provider: 08/31/24 01:01 Source: patient Mode of arrival: ambulatory Limitations: no limitations History of Present Illness HPI narrative: 34-year-old female reports 24 hours of dysuria. Took some [id number] Uristat initially and symptoms improved but are now worsening as she went to bed tonight. No fever. No noted blood in the urine, no diarrhea. No severe weakness or other red flags. Did have a bladder infection 3 and half weeks ago, completed treatment on Bactrim. Chart reviewed from ED. Culture reviewed. E coli with multiple sensitivities. Denies antibiotic allergies. Not on any type of control. Denies , last menstrual period was about 3 weeks ago. No unusual gynecological discharge. Denies any other contributing review of systems. Related Data Home Medications ?Medication ?Instructions ?Recorded ?Confirmed ascorbate calcium (vitamin C) 500 500 mg PO QDAY 04/08/23 06/10/24 mg tablet lysine 1,000 mg tablet 1,000 mg PO QDAY 04/08/23 06/10/24 zinc gluconate 30 mg tablet 30 mg PO ONCE 04/08/23 06/10/24 multivitamin 1 tab PO QAM 12/06/23 06/10/24 Previous Rx's ?Medication ?Instructions ?Recorded sulfamethoxazole 800 1 tab PO BID #10 tabs 08/05/24 mg-trimethoprim 160 mg tablet (Bactrim DS) Allergies Allergy/AdvReac Type Severity Reaction Status Date / Time No Known Allergies Allergy Unknown Verified 06/10/24 09:26 [facility] PFS Medical History Internal hemorrhoid ?K64.8 - Other hemorrhoids (ICD-10) Post-dates ?O48.0 - Post-term (ICD-10) History of urinary tract infection ?Z87.440 - Personal history of urinary (tract) infections (ICD-10) Surgical History S/P repeat low transverse (11/20/23) ?Z98.891 - History of uterine scar from previous surgery (ICD-10) Status post primary low transverse section (11/20/21) ?Z98.891 - History of uterine scar from previous surgery (ICD-10) Family History Family/Other Type 1 diabetes mellitus Paternal Grandfather Type 2 diabetes mellitus Mother Graves' disease Sister Melanoma Social History Narrative: SOCIAL Education: PHD in [place] literature 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 Exercise 4 times a week running and weights Lifetime nonsmoker 3 alcoholic drinks a week What is your current living situation?: I presently have a place to live Problems where you live: no known problems In the past 12 months, utilities in danger of being shut off: no In past 12 months, lack of transportation kept you from medical appts, meetings, work, or getting things needed for daily living: no In the past 12 mos, have been you worried that your food would run out before you had money to buy more?: never true In the past 12 mos, the food you bought just didn't last and you didn't have money to buy more?: never true Smoking Status: Never smoker Do you use any of these nicotine containing products: None Second hand tobacco smoke exposure: No How often do you have a drink containing alcohol: 2-4 times a month How many standard drinks containing alcohol do you have on a typical day: 1 or 2 How often do you have six or more drinks on one occasion: Never AUDIT-C Alcohol total score: 2 Non-prescribed substance use: denies use How often does anyone, including family, friends and others, physically hurt you: never How often does anyone, including family, friends and others, insult or talk down to you: never How often does anyone, including family, friends and others, threaten you with harm: never How often does anyone, including family, friends and others, scream or curse at you: never Little interest or pleasure in doing things: not at all Feeling down, depressed, or hopeless: not at all service: No Exam Const: Vital Signs, click to edit/add: Vital Signs - 24 hr 08/31/24 00:58 Temperature 98.0 F Pulse Rate [Pulse Oximeter] 65 Respiratory Rate 16 Blood Pressure [Ri ght Upper Arm] 130/70 Pulse Oximetry 99 Oxygen Delivery Me thod Room Air Documenting provider has reviewed patient's vital signs: yes Common normals: no apparent distress General appearance: well kempt Other: Friendly and cooperative, great historian. HENMT: Mouth: oral and palatal mucosa normal Eye: Common normals: conjunctivae normal General eye: normal appearance of both eyes Conjunctiva: conjunctiva(e) normal Resp: Common normals: normal respiratory effort, no use of accessory muscles and clear to auscultation bilaterally Auscultation: clear to auscultation bilaterally Cardio: Common normals: regular rate, regular rhythm, S1 normal heart sound, S2 normal heart sound and no murmurs Rate: regular rate Rhythm: regular rhythm Heart sounds: S1 normal and S2 normal GI: Common normals: Normal to inspection, nondistended, normoactive bowel sounds present, soft to palpation, non-tender, no hepatosplenomegaly and no masses Palpation: soft and no hepatosplenomegaly Neuro: Speech: speech normal Motor exam: no movement abnormalities noted Psych: Appearance: well kempt Attitude: engaged Insight: insight good Judgement: judgment good Skin: Common normals: no rashes or lesions noted General skin exam: no rashes or lesions noted Course Course ED Course: 34-year-old female with 24 hours of dysuria. Vitals not suggestive of sepsis, no fever. Urinalysis reviewed, appears consistent with UTI. Prior culture reviewed. I recommended Cipro due to the fact that she has had a recent infection. She declines as medication, worried about friends have had side effects on it. I do not think going back on Bactrim since she has been on it recently is a good idea and I verbalize my concerns with this. Did offer Keflex but based on her prior sensitivities there is a small chance she could be resistant to that antibiotic. There is some local resistance in our antibiograms as well. I am hesitant to use nitrofurantoin due to the fact that it is bacteria static not bacteriocidal. Rationale discussed with patient. She reports that she has had good success with that medication in the past and would like to try it. This is prescribed per her request. Counseled on Tylenol and ibuprofen in your a stat if needed. Alarm symptoms reviewed that would warrant ED presentation. Primary care follow-up if not improving in a few days or recurrent infection. Vital Signs Vital signs: Initial Vital Signs Temperature 98.0 F 08/31/24 00:58 Temperature Source Temporal Artery Scan 08/31/24 00:58 Pulse Rate 65 08/31/24 00:58 Pulse Rhythm Regular 08/31/24 00:58 Respiratory Rate 16 08/31/24 00:58 Blood Pressure 130/70 08/31/24 00:58 Blood Pressure Mean 90 08/31/24 00:58 Blood Pressure Position Sitting 08/31/24 00:58 Pulse Oximetry 99 08/31/24 00:58 Oxygen Delivery Method Room Air 08/31/24 00:58 Vital Signs Temperature 98.0 F 08/31/24 00:58 Pulse Rate 65 08/31/24 00:58 Respiratory Rate 16 08/31/24 00:58 Blood Pressure 130/70 08/31/24 00:58 Pulse Oximetry 99 08/31/24 00:58 Oxygen Delivery Method Room Air 08/31/24 00:58 Temperature 98.0 F 08/31/24 00:58 Pulse Rate 65 08/31/24 00:58 Respiratory Rate 16 08/31/24 00:58 Blood Pressure 130/70 08/31/24 00:58 Pulse Oximetry 99 08/31/24 00:58 Oxygen Delivery Method Room Air 08/31/24 00:58 Medical Decision Making Lab Data Lab results reviewed: Yes I reviewed the patient's lab results Lab results narrative: Consistent with UTI. Labs: Lab Results 08/31/24 Range/Units 00:50 Urine Color Yellow (Yellow) Urine Appearance Cloudy A (Clear) Urine pH 6.0 (5.0-8.5) Ur Specific [place] 1.010 (1.000-1.030) Urine Protein Negative (Negative) Urine Glucose (UA) Negative (Negative) Urine Ketones Negative (Negative) Urine Blood 2+ A (Negative) Urine Nitrite Positive A (Negative) Urine Bilirubin Negative (Negative) Urine Urobilinogen 0.2 (0.2-1.0) Ur Leukocyte Esterase 2+ A (Negative) Urine RBC 2-5 A (0-2) Urine WBC 10-25 A (0-5) Ur Squamous Epith Cells Few (None-Few) Urine Bacteria Moderate A (None) Discharge Plan Discharge Clinical Impression: UTI (urinary tract infection) Patient Disposition: Home, Self-Care Condition: Stable Additional Instructions: As we discussed , your urine is consistent with a urinary tract infection. Because you have recently been on Bactrim, I would not recommend going back on this antibiotic so soon. We discussed options. I recommend ciprofloxacin, you would prefer to avoid the side effects. We discussed additional trace is in you have chosen nitrofurantoin also known as Macrobid. This does have somewhat of a failure rate due to the fact that it is not bacteria killing but just bacteria reducing. You will need to drink lots of water to help flush out any potential infection. If symptoms do not improve as expected, you should follow-up in the clinic with a primary care provider to do further testing and discussion. You should come back to emergency department if you have persistent high fever, severe weakness or any other emergent type symptoms. You may return to work and or all typical duties unrestricted. This antibiotic does often discolor your urine and is not of concern. It is also okay to use [id number] azo, your a stat or other similar medications for urinary discomfort. Activity Level: No Restrictions Discharge Diet: Regular Prescriptions: No Action lysine 1,000 mg tablet 1,000 mg PO QDAY zinc gluconate 30 mg tablet 30 mg PO ONCE ascorbate calcium (vitamin C) 500 mg tablet 500 mg PO QDAY multivitamin Tablet 1 tab PO QAM sulfamethoxazole-trimethoprim [Bactrim DS] 800-160 mg tablet 1 tab PO BID Qty: 10 0RF Follow Up/Referrals: Magaly Fuentes MD [Primary Care Provider] - Stand Alone Forms: [employer] Info Instructions
== END 2024-08-31 01:20 | disposition home or self-care (01) ==
PROVIDERS: Emergency Provider Family Medicine; PCP Family Medicine
DX: N39.0 Urinary tract infection, site not specified (principal)
CPT/HCPCS: 81001; 81003; 87086; 87186; 99283

== ENCOUNTER 2024-08-31 10:50 | Outpatient (CLI) | payer MEDICAID, SELFPAY ==
--- OUTSIDE RECORDS SUMMARY | 2024-09-02 10:08 | XMS_ITS | Clinical Summary ---
Author Organization [facility] Address [place], [place] [address] Care Team Providers Care Asphalt Layer Name Role Phone Clinic, No Pcp Or [...] Comments Blood Pressure 130/70 10/13/2022 12:08 PM [facility] Pulse 75 10/13/2022 12:08 PM [employer] [employer] Temperature 36.6 ??C (97.8 ??F) 10/13/2022 12:[address] Respiratory Rate 16 10/13/2022 12:08 PM [employer] [employer] Oxygen Saturation 99% 10/13/2022 12:08 PM [employer] Inhaled Oxygen Concentration - - Weight 55.3 kg (122 lb) 10/13/2022 12:08 PM [employer] [employer] Height - - Body Mass Index - [...] 16 Negative Negative 01/03/2022 11:23 AM CDT [facility] TR[facility] LABOR[facility]ORY TYPE 18 Negative Negative 01/03/2022 11:23 AM CDT [facility] TR[facility] LAB[facility]ORY OTHER HIGH RISK TYPES Negative Negative 01/03/2022 11:23 AM CDT [facility] Other (Cervical/Vagina l) 01/01/2022 10:20 AM CDT 01/02/2022 9:00 AM CDT Narrative [facility] - 01/03/2022 11:23 AM CDT HPV types 16, 18, 31, 33, 35, 39, 45, 51, 52, 56, 58, 59, 66 and 68 DNA were undetectable or below the pre-set threshold. Methodology: Iris Lj 4800 HPV Test Kanwal Messer MD MICROBIOLOGY [facility] [address] [place] [address], from Last 3 Months or Most Recently Relevant to Health Maintenance Care Teams Asphalt Layer Relationship Specialty Start Date End Date Clinic, No Pcp Or . PCP - General 05/24/22
== END 2024-08-31 10:51 | disposition home or self-care (01) ==
LOC: NFLDREF 09-02 10:07
PROVIDERS: PCP Registered Nurse; Referring Provider Registered Nurse; Visit Provider Registered Nurse
DX: N39.0 Urinary tract infection, site not specified (principal); N30.00 Acute cystitis without hematuria
CPT/HCPCS: 87086

== ENCOUNTER 2024-08-31 23:57 | Emergency (ER) | payer MEDICAID, SELFPAY ==
[2024-09-01 00:02] VITALS: BP 118/74; BP 122/79; PULSE 79; PULSE 81; RESP 20; TEMP 37.2; O2SAT 99; BMI 17.5
--- NOTE | 2024-09-01 00:14 | ED.GENADULT ---
HPI - General Adult General Chief complaint: Fever Stated complaint: UTI with fever Time Seen by Provider: 09/01/24 00:10 History of Present Illness HPI narrative: CC: Fevers, Lower Back Pain pt. was seen in ED yesterday. diagnosed with UTI. comes in today d/t fevers and lower back pain . called nurse triage and was told to come to ED. denies n/v, diarrhea. 34-year-old woman presenting to the emergency department with concern of fever and low back pain. Kind of feels like flu in that regard. About an hour ago was feeling chilled and measured temperature with 2 different times/thermometers one of 102 another one of 99. On arrival here measures 99 something both temporal and oral. Triage line recommended being evaluated. Reviewing records shows Gram-negative doyle from urine at this point. Greater than 100,000 colonies. Apparently on August 05 grew E coli in her urine treated with Bactrim. Most recently nitrofurantoin given. Dysuria and urethral pain has since resolved. She has taken 2 doses of nitrofurantoin at this point Culture results from August 05 Urine Culture* Final ML Organism 1 Escherichia coli Ur [place] Count >100,000 CFU/ml E coli ADAL RX --------- --- Ampicillin >=32 R Ampicillin/Sulbactam <=2 I Cefazolin >=64 R Cefepime <=1 S Cefoxitin 8 S Ceftazidime 16 I Ceftriaxone 8 S Ciprofloxacin <=0.25 S Ertapenem <=0.5 S Gentamicin <=1 S Imipenem <=0.25 S Levofloxacin <=0.12 S Nitrofurantoin <=16 S Tobramycin <=1 S Trimethoprim/Sulfamethoxazole <=20 S Piperacillin/Tazobactam 16 S Related Data Home Medications ?Medication ?Instructions ?Recorded ?Confirmed ascorbate calcium (vitamin C) 500 500 mg PO QDAY 04/08/23 09/01/24 mg tablet lysine 1,000 mg tablet 1,000 mg PO QDAY 04/08/23 09/01/24 zinc gluconate 30 mg tablet 30 mg PO ONCE 04/08/23 09/01/24 multivitamin 1 tab PO QAM 12/06/23 09/01/24 sulfamethoxazole 800 1 tab PO BID 09/01/24 09/01/24 mg-trimethoprim 160 mg tablet Allergies Allergy/AdvReac Type Severity Reaction Status Date / Time No Known Allergies Allergy Unknown Verified 09/01/24 00:04 Review of Systems Status of ROS: Reports: 6 or more systems reviewed and unremarkable except as noted in History and below PFSH PFS Medical History Internal hemorrhoid ?K64.8 - Other hemorrhoids (ICD-10) Post-dates ?O48.0 - Post-term (ICD-10) History of urinary tract infection ?Z87.440 - Personal history of urinary (tract) infections (ICD-10) Surgical History S/P repeat low transverse (11/20/23) ?Z98.891 - History of uterine scar from previous surgery (ICD-10) Status post primary low transverse section (11/20/21) ?Z98.891 - History of uterine scar from previous surgery (ICD-10) Family History Family/Other Type 1 diabetes mellitus Paternal Grandfather Type 2 diabetes mellitus Mother Graves' disease Sister Melanoma Social History Narrative: SOCIAL Education: PHD in [place] literature 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 Exercise 4 times a week running and weights Lifetime nonsmoker 3 alcoholic drinks a week What is your current living situation?: I presently have a place to live Problems where you live: no known problems In the past 12 months, utilities in danger of being shut off: no In the past 12 mos, have been you worried that your food would run out before you had money to buy more?: never true In the past 12 mos, the food you bought just didn't last and you didn't have money to buy more?: never true Smoking Status: Never smoker Do you use any of these nicotine containing products: None Second hand tobacco smoke exposure: No How often do you have a drink containing alcohol: 2-4 times a month How many standard drinks containing alcohol do you have on a typical day: 1 or 2 How often do you have six or more drinks on one occasion: Never AUDIT-C Alcohol total score: 2 Non-prescribed substance use: denies use How often does anyone, including family, friends and others, physically hurt you: never How often does anyone, including family, friends and others, insult or talk down to you: never How often does anyone, including family, friends and others, threaten you with harm: never How often does anyone, including family, friends and others, scream or curse at you: never service: No Exam Narrative: Exam Narrative: Very pleasant. NAD. Skin is warm and dry. Abdomen is soft and nontender including not particularly tender in the flanks. Well-perfused. Skin is a little warm but not hot. Const: Vital Signs, click to edit/add: Vital Signs - 24 hr 09/01/24 00:02 09/01/24 00:02 09/01/24 01:14 Temperature 99.0 F 99.0 F 99.0 F Pulse Rate [Right Pulse Oximeter] 81 79 79 Respiratory Rate 20 20 20 Blood Pressure [Le ft Arm] 118/74 Blood Pressure [Ri ght Upper Arm] 122/79 118/74 Pulse Oximetry 99 99 99 Oxygen Delivery Me thod Room Air Room Air Room Air 09/01/24 01:49 Temperature 99.0 F Pulse Rate [Right Pulse Oximeter] 79 Respiratory Rate 20 Blood Pressure [Le ft Arm] Blood Pressure [Ri ght Upper Arm] 118/74 Pulse Oximetry Oxygen Delivery Me thod Documenting provider has reviewed patient's vital signs: yes Course Vital Signs Vital signs: Initial Vital Signs Temperature 99.0 F 09/01/24 00:02 Temperature Source Temporal Artery Scan 09/01/24 00:02 Pulse Rate 81 09/01/24 00:02 Pulse Rhythm Regular 09/01/24 00:02 Pulse Strength 3+ Normal 09/01/24 00:02 Respiratory Rate 20 09/01/24 00:02 Respiratory Effort Normal, Spontaneous, Non-Labored 09/01/24 00:02 Respiratory Depth Normal 09/01/24 00:02 Respiratory Pattern Normal 09/01/24 00:02 Blood Pressure 118/74 09/01/24 00:02 Blood Pressure Mean 88 09/01/24 00:02 Blood Pressure Position Sitting 09/01/24 00:02 Pulse Oximetry 99 09/01/24 00:02 Oxygen Delivery Method Room Air 09/01/24 00:02 Sepsis Recent Fever Within 48 Hours Yes 09/01/24 00:02 Sepsis New/Unexplained Change in Mental Status No 09/01/24 00:02 Sepsis Action Taken by Nursing No Action Required 09/01/24 00:02 Vital Signs Temperature 99.0 F 09/01/24 00:02 Pulse Rate 81 09/01/24 00:02 Respiratory Rate 20 09/01/24 00:02 Blood Pressure 118/74 09/01/24 00:02 Pulse Oximetry 99 09/01/24 00:02 Oxygen Delivery Method Room Air 09/01/24 00:02 Temperature 99.0 F 09/01/24 01:49 Pulse Rate 79 09/01/24 01:49 Respiratory Rate 20 09/01/24 01:49 Blood Pressure 118/74 09/01/24 01:49 Pulse Oximetry 99 09/01/24 01:14 Oxygen Delivery Method Room Air 09/01/24 01:14 Medical Decision Making MDM Narrative Medical decision making narrative: Really does appear to have another urinary tract infection. Is generally quite healthy and nitrofurantoin, given prior sensitivities on review of record, should be able to treat it least prior E coli per sensitivities. She has had 2 doses of nitrofurantoin at this point with improvement in symptoms otherwise. This flank pain and considering vitals without documented fever here at least, I am less convinced of pyelonephritis at this point. Would propose screening for COVID and influenza although symptoms might well be related to cystitis. Does not appear to have anything else going on. And would monitor symptoms closely. We did discuss changing antibiotics at this point but I think it would be acceptable to wait for results of culture sensitivities which should be available probably in about 12 to 16 hours. Given expressed concerns about ciprofloxacin, if necessary would consider switching to cephalexin though in last culture 2nd generation cephalosporin was not optimal. See patient discharge plan for further discussion Medical Records Medical records reviewed: Yes I reviewed the patient's medical records Lab Data Lab results reviewed: Yes I reviewed the patient's lab results Labs: Lab Results 09/01/24 Range/Units 00:56 SARS-CoV-2 (PCR) Negative SARS-CoV-2 (Negative) Influenza Type A (PCR) Negative PCR FLU A (Negative) Influenza Type B (PCR) Negative PCR FLU B (Negative) Discharge Plan Discharge Clinical Impression: Cystitis, Flank pain Additional Instructions: Can take up to 800 mg of ibuprofen or up to 1000 mg of acetaminophen per dose. Focus on hydration with unsugared/unsweetened liquid like water. For dysuria can take Pyridium available [id number]. Would check in with repeatable measurable fever and elevated heart rate, nausea. Call/be seen as well if symptoms have not improved after 4 days. Otherwise urine culture is pending and we will call you if treatment needs to change. Take another dose of nitrofurantoin (Macrobid) when you get home tonight and another dose in mid morning and then in the to make dosing schedule a little easier. I will call you if your swabs are positive. Prescriptions: No Action lysine 1,000 mg tablet 1,000 mg PO QDAY zinc gluconate 30 mg tablet 30 mg PO ONCE ascorbate calcium (vitamin C) 500 mg tablet 500 mg PO QDAY multivitamin Tablet 1 tab PO QAM sulfamethoxazole-trimethoprim 800-160 mg tablet 1 tab PO BID Follow Up/Referrals: Keturah Edmonds, ACCESS SERVICE REPRESENTATIVE [Primary Care Provider] - Stand Alone Forms: [employer] Info Instructions
--- OUTSIDE RECORDS SUMMARY | 2024-09-01 00:39 | XMS_ITS | Clinical Summary ---
Author Organization [employer] [facility] Address [place], [place] [address] Care Team Providers Care Gun Numberer Name Role Phone Clinic, No Pcp Or [...] Comments Blood Pressure 130/70 10/13/2022 12:08 PM LOG DECKMAN Pulse 75 10/13/2022 12:08 PM LOG DECKMAN Temperature 36.6 ??C (97.8 ??F) 10/13/2022 12:[address] Respiratory Rate 16 10/13/2022 12:08 PM LOG DECKMAN Oxygen Saturation 99% 10/13/2022 12:08 PM LOG DECKMAN Inhaled Oxygen Concentration - - Weight 55.3 kg (122 lb) 10/13/2022 12:08 PM LOG DECKMAN Height - - Body Mass Index - [...] 16 Negative Negative 01/03/2022 11:23 AM CDT [facility] TYPE 18 Negative Negative 01/03/2022 11:23 AM CDT [facility] OTHER HIGH RISK TYPES Negative Negative 01/03/2022 11:23 AM CDT [facility] Other (Cervical/Vagina l) 01/01/2022 10:20 AM CDT 01/02/2022 9:00 AM CDT Narrative [facility] - 01/03/2022 11:23 AM CDT HPV types 16, 18, 31, 33, 35, 39, 45, 51, 52, 56, 58, 59, 66 and 68 DNA were undetectable or below the pre-set threshold. Methodology: Iris Lj 4800 HPV Test Kanwal Messer MD MICROBIOLOGY [facility] [address] [place] [address], from Last 3 Months or Most Recently Relevant to Health Maintenance Care Teams Gun Numberer Relationship Specialty Start Date End Date Clinic, No Pcp Or . PCP - General 05/24/22
[2024-09-01 01:14] VITALS: BP 118/74; PULSE 79; RESP 20; TEMP 37.2; O2SAT 99
[2024-09-01 01:47] LABS: PCR FLU A Negative PCR FLU A (Negative); PCR FLU B Negative PCR FLU B (Negative); SARS PCR* Negative SARS-CoV-2 (Negative)
[2024-09-01 01:49] VITALS: BP 118/74; PULSE 79; RESP 20; TEMP 37.2
== END 2024-09-01 01:49 | disposition home or self-care (01) ==
PROVIDERS: Emergency Provider Family Medicine; PCP Registered Nurse
DX: N30.90 Cystitis, unspecified without hematuria (principal); M54.50 Low back pain, unspecified; R50.9 Fever, unspecified
CPT/HCPCS: 87631; 99283; 99284

== ENCOUNTER 2024-09-01 15:59 | Emergency (ER) | payer MEDICAID, SELFPAY ==
[2024-09-01] VITALS (13 sets, daily range): BP systolic 114–138; BP diastolic 68–86; PULSE 101–117; RESP 18–20; TEMP 37.9–39.6; O2SAT 98–100; BMI 17.5
[2024-09-01] MEDS: IBUPROFEN 200 MG TABLET 600 MG PO (17:08)
--- NOTE | 2024-09-01 17:17 | CRLHL7_ITS ---
For Patients: As a result of the Century Cures Act, medical imaging exams and procedure reports are released immediately into your electronic medical record. You may view this report before your referring provider. If you have questions, please contact your health care provider. INDICATION: Shortness of breath. TECHNIQUE: Chest 2 view. COMPARISON: None. FINDINGS: There are bilateral basilar predominant interstitial opacities which are likely infectious or inflammatory. No dense consolidation. No pleural effusion or pneumothorax. Normal heart size and pulmonary vascularity. The bones are unremarkable. IMPRESSION: Bibasilar interstitial opacities are likely infectious or inflammatory. Dictated by Maricarmen Barragan MD @ 09/01/2024 6:13:08 PM (Electronically Signed)
--- NOTE | 2024-09-01 17:21 | ED_ITS ---
HPI - General Adult General Chief complaint: Fever Stated complaint: UTI, fever, body aches, cough Time Seen by Provider: 09/01/24 16:58 Source: patient Mode of arrival: ambulatory Limitations: no limitations History of Present Illness HPI narrative: 34-year-old female coming in today complaining of not feeling well. Patient was seen yesterday and diagnosed with a UTI. She has had 3 doses now Macrobid. She states that today her symptoms got worse with increasing body aches, fever that has not resolved. She states that she did have a dysuria and frequency, those 2 things have improved. But now she also has a slight cough. No rashes that she is aware of. She is not feeling short of breath. She denies abdominal pain, no flank pain. No blood in her urine. She has no appetite, but no nausea or vomiting. Denies diarrhea. Related Data Home Medications ?Medication ?Instructions ?Recorded ?Confirmed ascorbate calcium (vitamin C) 500 500 mg PO QDAY 04/08/23 09/01/24 mg tablet lysine 1,000 mg tablet 1,000 mg PO QDAY 04/08/23 09/01/24 zinc gluconate 30 mg tablet 30 mg PO ONCE 04/08/23 09/01/24 multivitamin 1 tab PO QAM 12/06/23 09/01/24 sulfamethoxazole 800 1 tab PO BID 09/01/24 09/01/24 mg-trimethoprim 160 mg tablet Previous Rx's ?Medication ?Instructions ?Recorded amoxicillin 875 mg-potassium 1 tab PO BID 7 days #14 tabs 09/01/24 clavulanate 125 mg tablet azithromycin 250 mg tablet 500 mg PO DIRECTED #6 tabs 09/01/24 Allergies Allergy/AdvReac Type Severity Reaction Status Date / Time No Known Allergies Allergy Unknown Verified 09/01/24 00:04 Review of Systems Status of ROS: Reports: 10 or more systems reviewed and unremarkable except as noted in History and below [facility] Medical History Internal hemorrhoid ?K64.8 - Other hemorrhoids (ICD-10) Post-dates ?O48.0 - Post-term (ICD-10) History of urinary tract infection ?Z87.440 - Personal history of urinary (tract) infections (ICD-10) Surgical History S/P repeat low transverse (11/20/23) ?Z98.891 - History of uterine scar from previous surgery (ICD-10) Status post primary low transverse section (11/20/21) ?Z98.891 - History of uterine scar from previous surgery (ICD-10) Family History Family/Other Type 1 diabetes mellitus Paternal Grandfather Type 2 diabetes mellitus Mother Graves' disease Sister Melanoma Social History Narrative: SOCIAL 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 Exercise 4 times a week running and weights Lifetime nonsmoker 3 alcoholic drinks a week What is your current living situation?: I presently have a place to live Problems where you live: no known problems In the past 12 months, utilities in danger of being shut off: no In the past 12 mos, have been you worried that your food would run out before you had money to buy more?: never true In the past 12 mos, the food you bought just didn't last and you didn't have money to buy more?: never true Smoking Status: Never smoker Do you use any of these nicotine containing products: None Second hand tobacco smoke exposure: No How often do you have a drink containing alcohol: 2-4 times a month How many standard drinks containing alcohol do you have on a typical day: 1 or 2 How often do you have six or more drinks on one occasion: Never AUDIT-C Alcohol total score: 2 Non-prescribed substance use: denies use How often does anyone, including family, friends and others, physically hurt you : never How often does anyone, including family, friends and others, insult or talk down to you: never How often does anyone, including family, friends and others, threaten you with harm: never How often does anyone, including family, friends and others, scream or curse at you: never service: No Exam Narrative: Exam Narrative: Well-nourished well-developed patient in no acute distress. Alert and oriented. Answers questions appropriately. Mood and affect are appropriate. Thoughts are goal oriented and rational. No tangential or magical thinking noted. Patient speaks in full sentences without needing to catch her breath. HEENT: Normocephalic atraumatic. Pupils are equally round reactive to light. Extraocular muscles are intact. Conjunctivae are moist without any icterus noted. Moist mucous membranes. Posterior pharynx is normal. Neck is soft without any lymphadenopathy or thyromegaly. No masses are appreciated. Cardiovascular: Tachycardic, regular rhythm. Lungs: Clear to auscultation bilaterally no wheezes rhonchi or rales are appreciated. Patient takes deep breaths without any discomfort. Abdomen: Soft and nontender nondistended with normal bowel sounds. No guarding or rebound. No masses or organomegaly appreciated. No CVA tenderness. Extremities: Bilateral lower extremities are without edema. Skin: Well perfused, warm, dry. Const: Vital Signs, click to edit/add: Vital Signs - 24 hr 09/01/24 16:09 09/01/24 16:46 09/01/24 17:01 Temperature 102 F H Pulse Rate 105 H 110 H Pulse Rate [Left P ulse Oximeter] Pulse Rate [Pulse Oximeter] 117 H Respiratory Rate 20 Blood Pressure 128/78 117/78 Blood Pressure [Le ft Arm] Blood Pressure [Ri ght Upper Arm] 127/74 Pulse Oximetry 100 99 98 Oxygen Delivery Me thod Room Air 09/01/24 17:08 09/01/24 17:12 09/01/24 17:16 Temperature 103.3 F H 102 F H Pulse Rate 113 H Pulse Rate [Left P ulse Oximeter] 117 H Pulse Rate [Pulse Oximeter] Respiratory Rate 20 Blood Pressure 138/86 Blood Pressure [Le ft Arm] 117/78 Blood Pressure [Ri ght Upper Arm] Pulse Oximetry 98 100 Oxygen Delivery Me thod Room Air 09/01/24 17:35 09/01/24 17:46 09/01/24 18:01 Temperature Pulse Rate 107 H 106 H 111 H Pulse Rate [Left P ulse Oximeter] Pulse Rate [Pulse Oximeter] Respiratory Rate Blood Pressure 127/83 127/76 125/75 Blood Pressure [Le ft Arm] Blood Pressure [Ri ght Upper Arm] Pulse Oximetry 100 98 100 Oxygen Delivery Me thod 09/01/24 18:05 09/01/24 18:13 09/01/24 18:16 Temperature 100.2 F H Pulse Rate 101 H Pulse Rate [Left P ulse Oximeter] Pulse Rate [Pulse Oximeter] Respiratory Rate Blood Pressure 114/68 Blood Pressure [Le ft Arm] Blood Pressure [Ri ght Upper Arm] Pulse Oximetry 99 98 Oxygen Delivery Me thod 09/01/24 19:06 Temperature Pulse Rate Pulse Rate [Left P ulse Oximeter] Pulse Rate [Pulse Oximeter] Respiratory Rate 18 Blood Pressure Blood Pressure [Le ft Arm] Blood Pressure [Ri ght Upper Arm] Pulse Oximetry Oxygen Delivery Me thod Course Course ED Course: CBC shows 91.4% neutrophils. Sodium slightly low at 131. Electrolytes were otherwise unremarkable. Total bilirubin slightly elevated at 2.0. CRP is elevated at 6.5. Urine shows 3+ blood but 0-2 RBCs, trace leukocyte esterase. Negative triple swab. Negative mono. Chest x-ray shows bilateral opacities concerning for pneumonia. Vital Signs Vital signs: Initial Vital Signs Temperature 102 F H 09/01/24 16:09 Temperature Source Temporal Artery Scan 09/01/24 16:09 Pulse Rate 117 H 09/01/24 16:09 Pulse Rhythm Regular 09/01/24 16:09 Respiratory Rate 20 09/01/24 16:09 Blood Pressure 127/74 09/01/24 16:09 Blood Pressure Mean 91 09/01/24 16:09 Blood Pressure Position Sitting 09/01/24 16:09 Pulse Oximetry 100 09/01/24 16:09 Oxygen Delivery Method Room Air 09/01/24 16:09 Vital Signs Temperature 102 F H 09/01/24 16:09 Pulse Rate 117 H 09/01/24 16:09 Respiratory Rate 20 09/01/24 16:09 Blood Pressure 127/74 09/01/24 16:09 Pulse Oximetry 100 09/01/24 16:09 Oxygen Delivery Method Room Air 09/01/24 16:09 Temperature 100.2 F H 09/01/24 18:05 Pulse Rate 101 H 09/01/24 18:16 Respiratory Rate 18 09/01/24 19:06 Blood Pressure 114/68 09/01/24 18:16 Pulse Oximetry 98 09/01/24 18:16 Oxygen Delivery Method Room Air 09/01/24 17:12 Medications Administered Medications: Discontinued Medications Generic Name Dose Route Start Last Admin Trade Name Shine PRN Reason Stop Dose Admin Ibuprofen 600 mg 09/01/24 16:59 09/01/24 17:08 Ibuprofen 200 Mg Tablet PO 09/01/24 17:00 600 mg ONCE ONE Administration Medical Decision Making MDM Narrative Medical decision making narrative: 34-year-old female presenting with cough, generalized not feeling well, achiness and fever. Symptoms and workup consistent with pneumonia. Currently being treated for UTI-symptoms of UTI do seem to be improving. At this time we will have the patient stop her Macrobid instead start Augmentin plus azithromycin. Lab Data Lab results reviewed: Yes I reviewed the patient's lab results Labs: Lab Results 09/01/24 09/01/24 09/01/24 Range/Units 17:18 18:01 Unknown WBC 11.34 H (4.50-11.00) K/uL RBC 4.21 (4.00-5.20) m/uL Hgb 13.0 (12.0-16.0) gm/dL Hct 38.7 (33.0-51.0) % MCV 92 (80-100) fL MCH 31 (26-34) pg MCHC 34 (32-36) gm/dL RDW Coeff of Martine 11.8 (11.5-15.5) % Plt Count 237 (140-440) K/uL Neut % (Auto) 91.4 H (42.0-72.0) % Lymph % (Auto) 1.9 L (20-44) % [place] % (Auto) 3.9 (0.0-11.0) % Eos % (Auto) 2.4 (0.0-7.0) % Baso % (Auto) 0.2 (0.0-3.0) % Neut # (Auto) 10.40 H (1.7-7.0) K/uL Lymph # (Auto) 0.20 L (0.90-2.90) K/uL [place] # (Auto) 0.40 (0.00-0.90) K/UL Eos # (Auto) 0.30 (0.00-0.50) K/uL Baso # (Auto) 0.00 (0.00-0.30) K/uL Abs Immat Gran (auto) 0.00 (0.00-0.30) K/uL Imm/Tot Granulo (auto) 0.2 % Sodium 131 L (135-149) mmol/L Potassium 3.6 (3.6-5.1) mmol/L Chloride 100 (96-114) mmol/L Carbon Dioxide 21 (20-32) mmol/L Anion Gap 10 (7-15) mEq/L BUN 8 (5-24) mg/dL Creatinine 0.6 (0.5-1.5) mg/dL Estimated Creat Clear 108.79 Estimated GFR 121 ml/min Glucose 107 (60-115) mg/dL Lactate 1.3 (0.5-1.9) mmol/L Calcium 9.4 (8.4-10.6) mg/dL Total Bilirubin 2.0 H (0.1-1.5) mg/dL Direct Bilirubin 0.1 (0.0-0.5) mg/dL AST 31 (12-35) U/L ALT 18 (4-35) U/L Alkaline Phosphatase 75 (40-150) U/L C-Reactive Protein 6.5 H (0.5-1.0) mg/dL Total Protein 7.3 (6.0-8.3) g/dL Albumin 4.5 (3.3-5.0) g/dL Urine Color Yellow (Yellow) Urine Appearance Slightly Cloudy A (Clear) Urine pH 7.0 (5.0-8.5) Ur Specific [place] 1.015 (1.000-1.030) Urine Protein Negative (Negative) Urine Glucose (UA) Negative (Negative) Urine Ketones 2+ A (Negative) Urine Blood 3+ A (Negative) Urine Nitrite Negative (Negative) Urine Bilirubin Negative (Negative) Urine Urobilinogen 0.2 (0.2-1.0) Ur Leukocyte Esterase Trace A (Negative) Urine RBC 0-2 (0-2) Urine WBC 2-5 (0-5) Ur Squamous Epith Cells Few (None-Few) Urine Bacteria None (None) SARS-CoV-2 (PCR) Negative SARS-CoV-2 (Negative) Monoscreen Negative (Negative) Influenza Type A (PCR) Negative PCR FLU A (Negative) Influenza Type B (PCR) Negative PCR FLU B (Negative) RSV (PCR) Negative PCR RSV (Negative) Imaging Data Chest x-ray: Attestation: I have reviewed the pertinent imaging results. Radiologist's impression: TECHNIQUE: Chest 2 view. COMPARISON: None. FINDINGS: There are bilateral basilar predominant interstitial opacities which are likely infectious or inflammatory. No dense consolidation. No pleural effusion or pneumothorax. Normal heart size and pulmonary vascularity. The bones are unremarkable. IMPRESSION: Bibasilar interstitial opacities are likely infectious or inflammatory. Discharge Plan Discharge Clinical Impression: Pneumonia Instructions: Pneumonia (ED) Additional Instructions: Stop taking the Macrobid. You will be prescribed 2 different antibiotics to start taking to cover for pneumonia. This will also cover for the remaining of your bladder infection. You do seem to be a bit dehydrated-make sure to increased your fluid intake. Okay to take Tylenol or ibuprofen as needed for aches, pains and fevers. Recommend you follow-up with your primary care provider in approximately 48 hours if you are not feeling some improvement. Expect fevers to last many days, expect cough to last for a couple of weeks. Prescriptions: New azithromycin 250 mg tablet 500 mg PO DIRECTED Qty: 6 0RF Taper: Z-EDUARD 500 mg Q24H for 1 Day and 0 Hour 250 mg Q24H for 4 Days and 0 Hour Rx Instructions: For 250 mg dose pack: take 500 mg today (day 1), then 250 mg for 4 days (days 2-5) amoxicillin-pot clavulanate 875-125 mg tablet 1 tab PO BID 7 Days Qty: 14 0RF No Action lysine 1,000 mg tablet 1,000 mg PO QDAY zinc gluconate 30 mg tablet 30 mg PO ONCE ascorbate calcium (vitamin C) 500 mg tablet 500 mg PO QDAY multivitamin Tablet 1 tab PO QAM sulfamethoxazole-trimethoprim 800-160 mg tablet 1 tab PO BID Follow Up/Referrals: Keturah Edmonds, BAG INSPECTOR [Primary Care Provider] - Stand Alone Forms: [facility] Info Instructions
--- OUTSIDE RECORDS SUMMARY | 2024-09-01 17:21 | XMS_ITS | Clinical Summary ---
Author Organization [facility] [employer] [facility] Address [place], [place] [address] Care Team Providers Care Science Specialist Name Role Phone Clinic, No Pcp Or [...] Comments Blood Pressure 130/70 10/13/2022 12:08 PM DIRECTOR OF PROVIDER RELATIONS Pulse 75 10/13/2022 12:08 PM DIRECTOR OF PROVIDER RELATIONS Temperature 36.6 ??C (97.8 ??F) 10/13/2022 12:[address] Respiratory Rate 16 10/13/2022 12:08 PM DIRECTOR OF PROVIDER RELATIONS Oxygen Saturation 99% 10/13/2022 12:08 PM DIRECTOR OF PROVIDER RELATIONS Inhaled Oxygen Concentration - - Weight 55.3 kg (122 lb) 10/13/2022 12:08 PM DIRECTOR OF PROVIDER RELATIONS Height - - Body Mass Index - [...] 16 Negative Negative 01/03/2022 11:23 AM CDT [facility] TYPE 18 Negative Negative 01/03/2022 11:23 AM CDT [facility] OTHER HIGH RISK TYPES Negative Negative 01/03/2022 11:23 AM CDT [facility] Other (Cervical/Vagina l) 01/01/2022 10:20 AM CDT 01/02/2022 9:00 AM CDT Narrative [facility] - 01/03/2022 11:23 AM CDT HPV types 16, 18, 31, 33, 35, 39, 45, 51, 52, 56, 58, 59, 66 and 68 DNA were undetectable or below the pre-set threshold. Methodology: Iris Lj 4800 HPV Test Kanwal Messer MD MICROBIOLOGY [facility] [address] [place] [address], from Last 3 Months or Most Recently Relevant to Health Maintenance Care Teams Science Specialist Relationship Specialty Start Date End Date Clinic, No Pcp Or . PCP - General 05/24/22
[2024-09-01 17:29] LABS: Appearance Urine Slightly Cloudy (Clear); Bilirubin Urine Negative (Negative); Blood Urine 3+ (Negative); Color Urine Yellow (Yellow); Glucose Urine Negative (Negative); Ketones Urine 2+ (Negative); Leukocyte Esterase Urine Trace (Negative); Nitrite Urine Negative (Negative); Protein Urine Negative (Negative); Specific Gravity Urine 1.015 (1.000-1.030); Urobilinogen Urine 0.2 (0.2-1.0)
[2024-09-01 17:46] LABS: RBC Urine 0-2 (0-2); Squamous Epithelial Cell Urine Few (None-Few)
[2024-09-01 18:09] LABS: Lactate* 1.3 mmol/L (0.5-1.9)
[2024-09-01 18:17] LABS: Basophils Percent Auto 0.2 % (0.0-3.0); Eosinophils Percent Auto 2.4 % (0.0-7.0); Hematocrit 38.7 % (33.0-51.0); Immature Granulocytes Pct Auto 0.2 %; Lymphocytes Percent Auto 1.9 % (20-44); Mean Corpuscular HGB Conc 34 gm/dL (32-36); Mean Corpuscular Hemoglobin 31 pg (26-34); Mean Corpuscular Volume 92 fL (80-100); Monocytes Percent Auto 3.9 % (0.0-11.0); Neutrophils Percent Auto 91.4 % (42.0-72.0); Platelet Count* 237 K/uL (140-440); RDW Coefficient of Variation % 11.8 % (11.5-15.5); Red Blood Count 4.21 m/uL (4.00-5.20); White Blood Count* 11.34 K/uL (4.50-11.00)
[2024-09-01 18:25] LABS: Slide Review Reflex No
[2024-09-01 18:29] LABS: Albumin* 4.5 g/dL (3.3-5.0); Chloride* 100 mmol/L (96-114)
[2024-09-01 18:30] LABS: Potassium* 3.6 mmol/L (3.6-5.1); Sodium* 131 mmol/L (135-149)
[2024-09-01 18:32] LABS: Creatinine* 0.6 mg/dL (0.5-1.5); Est. Creatinine Clearance* 108.79; Estimated Glomerular Filt Rate 121 ml/min
[2024-09-01 18:33] LABS: Mono Screen* Negative (Negative)
[2024-09-01 18:33] LABS: Alanine Aminotransferase* 18 U/L (4-35); Alkaline Phosphatase* 75 U/L (40-150); Anion Gap 10 mEq/L (7-15); Aspartate Amino Transferase* 31 U/L (12-35); Bilirubin Direct* 0.1 mg/dL (0.0-0.5); Blood Urea Nitrogen* 8 mg/dL (5-24); Calcium* 9.4 mg/dL (8.4-10.6); Carbon Dioxide* 21 mmol/L (20-32); Glucose* 107 mg/dL (60-115); Total Protein* 7.3 g/dL (6.0-8.3)
[2024-09-01 18:36] LABS: C Reactive Protein* 6.5 mg/dL (0.5-1.0)
[2024-09-01 18:50] LABS: PCR FLU A Negative PCR FLU A (Negative); PCR FLU B Negative PCR FLU B (Negative); PCR RSV Negative PCR RSV (Negative); SARS PCR* Negative SARS-CoV-2 (Negative)
== END 2024-09-01 19:52 | disposition home or self-care (01) ==
PROVIDERS: Emergency Provider Family Medicine; PCP Registered Nurse
DX: J18.9 Pneumonia, unspecified organism (principal)
CPT/HCPCS: 36415; 71046; 80048; 80076; 81001; 83605; 85025; 86140; 86308; 87086; 87631; 94761; 99284; A9270

== ENCOUNTER 2024-11-28 08:42 | Outpatient (CLI) | payer MEDICAID, SELFPAY | END 2024-11-28 08:43 | disposition home or self-care (01) | LOC: NFLDREF 12-03 15:11 | PROVIDERS: PCP Registered Nurse; Referring Provider Registered Nurse; Visit Provider Nurse Practitioner Family | DX: R30.0 Dysuria (principal); R82.90 Unspecified abnormal findings in urine | CPT/HCPCS: 87086 ==

== ENCOUNTER 2024-12-25 18:57 | Outpatient (CLI) | payer MEDICAID, SELFPAY | END 2024-12-25 18:58 | disposition home or self-care (01) | LOC: NFLDREF 12-29 06:37 | PROVIDERS: PCP Registered Nurse; Referring Provider Registered Nurse | DX: R30.0 Dysuria (principal) | CPT/HCPCS: 87086 ==

== ENCOUNTER 2025-06-03 12:00 | Outpatient (RCR) | payer MEDICAID, SELFPAY ==
--- NOTE | 2023-12-12 08:58 | PT.OPEX ---
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 Did attempt TOLAC but unsuccessful due to Non reassuring heart tones. Overall recovery seems faster than with first child. End goal would like to return to running. Had a lot of trouble getting catheter in . After this felt discomfort at urethral opening but hard to empty fully. Also has some rectal hemhorroids. Did push a lot in labor. Has tried doing some deep breathing and that has helped with urinary emptying. Not using abdominal binder. -Urinary: Does have difficulty fully relaxing for full emptying. Deep breathing does to help, tries to do this 10 breaths 3x/day. 70% full emptying, 30% incomplete. No heaviness in vaginal space. Daytime urination 10-12x. Nocturia 2x. No urinary urgency. Did have a check for UTI in hospital was negative. No pain in urethra. No urinary leakage -Hydration: 75-100 oz (128#) -Bowel: 1x/day. No straining. Delmar chart type 4. No longer taking stool softeners. -Sexual: not yet -PMHx: -: G/P 2/2 both deliveries -Current exercise: deep breathing -Orthopedic issues: soreness at scar. No pain meds -Goals: return to running, resolve any urinary and rectal , return to intercourse. Objective Other/Pertinent Objective -Absent sensation in tissue 1- 4 inches superior from scar. Diminished 1 inch below scar -Able to engage lower TA with 30-40% level of effort Assessment Assessment/Impression Pt is a 33 y/o female who presents with concerns of lower abdominal pain, incomplete bladder emptying after section on 11/20. Signs and symptoms likely indicating / consistent with post-op status for major abdominal surgery. 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 Did not complete vaginal assessment as pt is only x 3 wks this date, will complete at 6 wks after follow-up with OB. Patient is a good candidate for skilled therapy to target deficits described above. Skilled PT intervention is necessary for use of therapeutic exercise manual therapy, neuromuscular re-education, gait training, and therapeutic activity. Functional impairments include difficulty with: urinary voiding and pain. See appropriate sections of PT eval for complete list of goals and POC. D/C plan and criteria is for pt to achieve the goals as listed below or until max rehab potential is met. Pt was agreeable with plan of care and goals established. Anticipate prolonged rehab course due to recovery from major abdominal surgery in addition to progression back to pt's active lifestyle following this surgery. Evaluation and internal vaginal PFM assessment/ treatment with patient consent was requested and obtained. Plan of Care Physical Therapy Goals STG (within 10 visits ) 1) Pt will demonstrate proper coordination of motor recruitment patterns for PF then TA activation during isometric activation while maintaining diaphragmatic breathing pattern 2 ) Pt will report 0/10 pain with palpation of PFM layers 1 -3 to show reduced tissue irritability 3) Pt will demonstrate at least 3/5 PFC via modified oxford scale 4) Pt will complete return to run readiness screen without any pelvic floor symptoms to show readiness to start return to run program (at least 12+ weeks ) LTG (within 20 visits) 1) Pt will demonstrate proper coordination of motor recruitment patterns for PF then TA activation during dynamic UE/LE movements in all postures while maintaining diaphragmatic breathing pattern 2)Pt will demonstrate ability to complete at least 10 quick contractions of PFM with full relaxation between reps in order to reduce incontinence with increases in IAP 3) Pt will return to running using walk/run program without increased pain, urinary leakage or urgency. 4) Pt will report Marinoff scale score less than 2 5) Pt will report ability to fully empty bladder and bowels without pain and no straining Treatment Plan/Direct Interventions Electrical Stimulation,Gait Training,Joint Mobilization, Neuromuscular Re-ed,Self-Care/ Home Management,Therapeutic Activities,Therapeutic Exercises,Ultrasound Frequency/Duration 1x/wk x 20 visits in 60 days Patient Will Be Discharged From Therapy Skills Plateau,Independent w/ HEP,Independently Progressing Evaluation Billing Untimed Code Treatment Minutes 20 Complexity Low Certification Information Initial Certification Date 12/12/23 Ending Certification Date 02/10/24 Provider Signature Shows Agreement With POC & Medical Necessity Physician Signature & Date Requested Please Sign/Date Here Physician Comment/Change : Physician NPI Number #
--- NOTE | 2024-03-26 12:52 | PT.OPDNX ---
PT [place] [facility] Daily Note PT [facility] Start: 12/12/23 07:32 Freq: Status: Active Protocol: Document 03/26/24 09:02 ARR (Rec: 03/26/24 10:05 ARR [id number]) E-signed By Prema Hawthorne DPT PT OP Daily Progress Note Visit Information Note Type Daily Note,Recert/Progress Note Visit Number 10 Insurance Information Recert Due Date 06/24/24 Insurance Name Medicaid,[facility] Insurance Information/Comments EVAL 12/12 -01/28 // 01/28 - 03/26 // / - 06/24 POC 1 x 20 // 1 X 20 // Medical Diagnosis Z98.891 history of uterine scar from previous surgery N94.2 vaginismus N94.810 vulvar vestibulitis S/p Repeat low transverse c- section Treating Diagnosis R10.30 Lower abdominal pain, unspecified R39.14 Feeling of incomplete bladder emptying Referring MD Kanwal Messer MD Subjective Subjective -Abdominal area going well. -No rectal soreness until /Sat. Symptoms feeling sore and tight. Missed a BM yesterday. Then had BM today with bleeding, wondering if it 's a fissure. Closer to cycle stools more loose. Home Exercise Home Exercise Comments OTHER: -desensitization handout 12/12 2 x 3-5 min daily - reminders 12/12 -Scar tissue mobilization handout 01/07 -01/28 - sh with TA bracing vs upper ab gripping, sitting on toilet daily and increasing carbs into diet Access Code: [email or web address] URL: [email or web address]/ Date: 12/12/2023 Prepared by: Prema Hawthorne Access Code: [email or web address] URL: [email or web address]/ Date: 02/12/2024 Prepared by: Prema Hawthorne Exercises - Tall Kneeling Hip Hinge - 1 x daily - 3-4 x weekly - 2 sets - 6-8 reps - Quadruped Diaphragmatic Breathing - 1 x daily - 3-4 x weekly - 1-2 sets - 6-8 reps - Seated Hip Adduction Isometrics with Ball - 1 x daily - 3-4 x weekly - 2 sets - 6-8 reps Objective Other/Pertinent Objective Rectal assessment 03/26/24: -Palpable small mass possibly internal hemorroid at 5 oclock position on R depth to 1st knuckle to 1.5 knuckle depth. TTP at this area and surrounding tissue from 7 oclock to 2 oclock on R side. No TTP at level of EAS INTERNAL EXAMINATION INTRAVAGINAL 01/08/24: -Sensation: intact to touch -Observation: WNL -Perineum: normal -Cough: reflexive contraction -Lifting contraction: visible lift -Bulge: bulge Tenderness/pain to palpation/ tone: -Layer 1: superficial transverse perineal on R -Layer 2: deep transverse perineal / sphincter urethrovaginalis on R -Layer 3: puborectalis on R -Pelvic wall: obturator internus on R Inc'd tone and TTP on muscles on R side. Global TTP over perineum with R sided > than L side Strength ( R / C / L): Vaginally and rectally -Power (MMT):3 -Endurance: 8 -Reps: 3 -Fast twitch: 2 (able to do 10 but at reduced strength of contraction) -Relaxation of PFM after quick contractions: normal Other: -Breathing examination: dec?d posterior and lateral ribcage mvmt with inhalation -Coordination: inc'd upper ab gripping with bearing down into lower abdominal area RECTAL: palpation: TTP at 4-6 oclock with reduced tissue mobility. Strength as above. EAS circumferential squeeze EXTERNAL OBJECTIVE 01/22/24: -Movement screen: MS flexion reduced TS, LS, HS. MS extension reduced TS, LS, and into abdominal wall. MS rotaiton WNL. -SLS: holding 30 sec, level pelvis. -Posture: level IC. inc'd PPT -Hip PROM: ER 70, IR 20, extension limited 10* bilat -Strength: glut medius 2+ bilat Other Tests: -Coordination: bearing down into lower abs with TA activation -Breathing: dec?d posterior and lateral ribcage mvmt with inhalation -Flexibility: pos HF, HS bilat Patient Instructed in Risks/Benefits Yes Therapeutic Exercise Therapeutic Exercise Minutes (minutes) 10 Therapeutic Exercise: To Restore TE: Indicated for improvement Functional Status in strengthening and mobility. -Handouts with written instructions and photographs of exercises were issued to the patient for exercises to be included in HEP. Answered patient questions regarding POC, and mobility/stretches to perform if pain occurs -rectal assessment as noted above -pt educated in anatomy and function of bladder & pelvic floor & etiology of symptoms. -Education regarding importance of deep diaphragmatic breathing for lengthening of PFM and anatomical relationship of diaphragm and PF -Pt educated regarding importance of proper P mgmt and impact on abdominal wall/ PF with poor techniques -Provided instructions about completion of bladder diary. Written instructions/ information provided to pt to complete x 2 days. Manual Therapy Techniques Manual Therapy Minutes (minutes) 45 Manual Therapy Techniques MT: indicated for improving joint mobility, reducing tissue irritability, and improving range of motion. Transrectal w/consent (prone) -working on EAS mobility in all directions -Simulated defecation to assess coordination in defecation -R sided PC/AL contract relax with passive elongation upon relaxation -Gentle STM distal 1/4 of IAS and EAS not pressing on internal hemorrhoid but tissue proximal to this tissue Treatment Minutes Timed Code Treatment Minutes 55 Total Treatment Time 55 Billing Units Manual Therapy Units 3 Neuromuscular Reeducation Units 1 Assessment/Impression Assessment/Impression Reduced rectal sx's overall since last session after treatment but still persistent . Assessment this date noting what appears like internal hemorrhoid at 5 oclock position on R side. Pt may also have internal fissure this date as well. Externally no fissure was appreciated, healing hemorrhoids were noted . Pt to monitor sx's and report next session, if sx's were flared after session consider referral back to colorectal for medical mgmt. If sx's improved, assume the presence of a musculoskeletal component to sx's. Next session continue with TA, glut and PF strengthening/ coordination - may need to consider PFM strengthening/ coordination with routine as well in upcoming sessions in addition to progression of TA strength/coordination. Plan of Care Physical Therapy Goals STG (within 10 visits ) 1) Pt will demonstrate proper coordination of motor recruitment patterns for PF then TA activation during isometric activation while maintaining diaphragmatic breathing pattern - MET 2 ) Pt will report 0/10 pain with palpation of PFM layers 1 -3 to show reduced tissue irritability - MET 3) Pt will demonstrate at least 3/5 PFC via modified oxford scale - PROGRESSING TOWARD 4) Pt will complete return to run readiness screen without any pelvic floor symptoms to show readiness to start return to run program (at least 12+ weeks ) - UNMET LTG (within 20 visits) - ALL UNMET 1) Pt will demonstrate proper coordination of motor recruitment patterns for PF then TA activation during dynamic UE/LE movements in all postures while maintaining diaphragmatic breathing pattern 2)Pt will demonstrate ability to complete at least 10 quick contractions of PFM with full relaxation between reps in order to reduce incontinence with increases in IAP 3) Pt will return to running using walk/run program without increased pain, urinary leakage or urgency. 4) Pt will report Marinoff scale score less than 2 5) Pt will report ability to fully empty bladder and bowels without pain and no straining Daily Plan of Care Comments Scar tissue moblization, abdominal wall STM GO BACK AND RECHECK ANAL AREA (supine vs prone) -TA: (supine TA tip outs, TA march, quadruped bird dog, static vs dynamic side plank from knees OR consider elevated from chair, seated ball squeeze). -GLUTS (sidelying clam, bridge w/march, kneel glut finder, modified plank lift, standing hip hinge, hip thrust, bilat heel raise) -MOBILITY: (adductor rockbacks , QL stretch, 90/90 switch, sidelying rotation, cat/cow). Cool down (bolstered child's pose, piriformis stretch) HEP: Consider progression of mobility to prone scorpion, 1/ 2 kneel HF< quadruped TS rotation. -Strength consider hip thrust, hip hinge, side plank. Supine marching. Supine heel slide, -other core: push-ups elevated , feet elevated bridge, calf raises, UE core Recertification Information Initial Certification Date 11/20/23 Recertification Start Date 03/27/24 Recertification Due Date 06/24/24 Reasons to Continue Skilled Therapy Pt had been seen for lower abdominal pain, rectal pain, incomplete bladder emptying after repeat delivery 11/20/23 for 10 visits from to 03/26/24 during this episode of physical therapy. Most recent certification period from 01/29/24 - 03/26/24. Focus of therapy on . Interventions including ther exercise, manual therapy, self -care, neuromuscular re- education. Pt has made significant progress since start of therapy with improved scar mobility and progression in proximal strengthening. However, pt continues to have recurring rectal pain - does appear secondary to possible internal hemorrhoid and/or fissure. If pt does not show consistent improvement with PT mgmt pt may benefit from referral back to provider for reassessment. Pt has not met maximal therapeutic benefit and would benefit from continued therapy at a frequency of 1x/wk to every other wk for an additional 20 visits in 90 days. Focus on reducing rectal pain, improving scar mobility, and progressing proximal strength/stability. See goal progress above. Provider Signature Shows Agreement With POC & Medical Necessity Physician Comment/Change Comment or Changes Physician NPI Number #
--- NOTE | 2024-06-15 09:18 | PT.OPDNX ---
PT [place] [facility] Daily Note PT [facility] Daily [facility] Start: 12/12/23 07:32 Freq: Status: Active Protocol: Document 06/15/24 07:23 ARR (Rec: 06/15/24 09:17 ARR [id number]) E-signed By Prema Hawthorne DPT PT OP Daily Progress Note Visit Information Note Type Daily Note,Recert/Progress Note Visit Number 7 Running Total Visit Number 17 Insurance Information Recert Due Date 09/13/24 Insurance Name Medicaid,[facility] Insurance Information/Comments EVAL 12/12 -/ // / - / // 03/27 - / // / - 06/15 POC 1 x 20 // 1 X 20 // every other week x 10 visits in 90 days Medical Diagnosis Z98.891 history of uterine scar from previous surgery N94.2 vaginismus N94.810 vulvar vestibulitis S/p Repeat low transverse c- section Treating Diagnosis R10.30 Lower abdominal pain, unspecified R39.14 Feeling of incomplete bladder emptying Referring MD Kanwal Messer MD Subjective Subjective -Met with surgeon, could see fissures. Confirmed hemorrhoid via picture. Surgery last resort option. common in . To try using prescription cream, bidet, and sitz bath as well. When ovulating stool seems more firm. Reinforced relaxing PF to improve blood flow. -Would like to review cupping technique, got them for at home -Would also like to review mtn climbers -Running interval will progress. Home Exercise Home Exercise Comments OTHER: -desensitization handout 12/12 2 x 3-5 min daily - reminders 12/12 -Scar tissue mobilization handout 01/07 -01/28 - sh with TA bracing vs upper ab gripping, sitting on toilet daily and increasing carbs into diet Access Code: [email or web address] URL: [email or web address]/ Date: 12/12/2023 Prepared by: Prema Hawthorne Access Code: [email or web address] URL: [email or web address]://[employer]/ Date: 02/12/2024 Prepared by: Prema Hawthorne Exercises - Tall Kneeling Hip Hinge - 1 x daily - 3-4 x weekly - 2 sets - 6-8 reps - Quadruped Diaphragmatic Breathing - 1 x daily - 3-4 x weekly - 1-2 sets - 6-8 reps - Seated Hip Adduction Isometrics with Ball - 1 x daily - 3-4 x weekly - 2 sets - 6-8 reps Objective Other/Pertinent Objective Rectal assessment 05/06/24: -Pulling tissue near 1 oclock caudally and laterally able to visually see what looks like hemorrhoid. -With pt consent did take photos for pt to have for documentation to provide to MD -Palpation: TTP with pressing into EAS at 6 oclock and 4, 7 oclock. No TTP up upper portion of the clock INTERNAL EXAMINATION INTRAVAGINAL 01/08/24: -Sensation: intact to touch -Observation: WNL -Perineum: normal -Cough: reflexive contraction -Lifting contraction: visible lift -Bulge: bulge Tenderness/pain to palpation/ tone: -Layer 1: superficial transverse perineal on R -Layer 2: deep transverse perineal / sphincter urethrovaginalis on R -Layer 3: puborectalis on R -Pelvic wall: obturator internus on R Inc'd tone and TTP on muscles on R side. Global TTP over perineum with R sided > than L side Strength ( R / C / L): Vaginally and rectally -Power (MMT):3 -Endurance: 8 -Reps: 3 -Fast twitch: 2 (able to do 10 but at reduced strength of contraction) -Relaxation of PFM after quick contractions: normal Other: -Breathing examination: dec?d posterior and lateral ribcage mvmt with inhalation -Coordination: inc'd upper ab gripping with bearing down into lower abdominal area RECTAL: palpation: TTP at 4-6 oclock with reduced tissue mobility. Strength as above. EAS circumferential squeeze EXTERNAL OBJECTIVE 01/22/24: -Movement screen: MS flexion reduced TS, LS, HS. MS extension reduced TS, LS, and into abdominal wall. MS rotaiton WNL. -SLS: holding 30 sec, level pelvis. -Posture: level IC. inc'd PPT -Hip PROM: ER 70, IR 20, extension limited 10* bilat -Strength: glut medius 2+ bilat Other Tests: -Coordination: bearing down into lower abs with TA activation -Breathing: dec?d posterior and lateral ribcage mvmt with inhalation -Flexibility: pos HF, HS bilat Patient Instructed in Risks/Benefits Yes Therapeutic Exercise Therapeutic Exercise Minutes (minutes) 15 Therapeutic Exercise: To Restore TE: Indicated for improvement Functional Status in strengthening and mobility. -Handouts with written instructions and photographs of exercises were issued to the patient for exercises to be included in HEP. Answered patient questions regarding POC, and mobility/stretches to perform if pain occurs -Discussion of POC and recommendations of colorectal provider pt saw last wk Manual Therapy Techniques Manual Therapy Minutes (minutes) 30 Manual Therapy Techniques MT: indicated for improving joint mobility, reducing tissue irritability, and improving range of motion. -STM to scar using hands and cupping focus on L side of scar and tissue inferior to scar line Rectal w/consent -STM focus on EAS from 3-9 oclock and R LQ -Gentle compression mobilization of EAS from 3-9 oclock lower portion of scar Neuromuscular Re-Ed Neuromuscular Reeducation Minutes ( 10 minutes) Neuromuscular Reeducation Comments NMR: Indicated to facilitate improved muscle firing and postural awareness through the use of tactile cues. -Supine bridge with alt LE december focus on lower abs 2 x 5 reps -Mtn climbers slow speed at high surface 2 x 5 reps Treatment Minutes Timed Code Treatment Minutes 55 Total Treatment Time 55 Billing Units Manual Therapy Units 2 Neuromuscular Reeducation Units 1 Therapeutic Exercise Units 1 Assessment/Impression Assessment/Impression Continued focus on scar mobilization this date with cupping and increasing depth of mobilization. Review of TA coordination exercises - cues as indicated. Returned rectally for treatment, does appear to have R LQ restrictions - did not treat tissues superior from 3-9 oclock as that was area of fissure. Pt to monitor and report changes in sx's next session. Pt to benefit form ongoing therapy with goals as noted below. Plan of Care Physical Therapy Goals STG (within 10 visits ) 1) Pt will demonstrate proper coordination of motor recruitment patterns for PF then TA activation during isometric activation while maintaining diaphragmatic breathing pattern - MET 2 ) Pt will report 0/10 pain with palpation of PFM layers 1 -3 to show reduced tissue irritability - MET 3) Pt will demonstrate at least 3/5 PFC via modified oxford scale - PROGRESSINGTOWARD 4) Pt will complete return to run readiness screen without any pelvic floor symptoms to show readiness to start return to run program (at least 12+ weeks ) - MET LTG (within 20 visits) - ALL UNMET 1) Pt will demonstrate proper coordination of motor recruitment patterns for PF then TA activation during dynamic UE/LE movements in all postures while maintaining diaphragmatic breathing pattern - PROGRESSING TOWARD 2)Pt will demonstrate ability to complete at least 10 quick contractions of PFM with full relaxation between reps in order to reduce incontinence with increases in IAP - PROGRESSING TOWARD 3) Pt will return to running using walk/run program without increased pain, urinary leakage or urgency. - PROGRESSING TOWARD, PATIENT ON INTERVAL TRAINING 4) Pt will report Marinoff scale score less than 2 - MET 5) Pt will report ability to fully empty bladder and bowels without pain and no straining - MET 6) Pt will report no flare of rectal pain within a period of at least 30 days to show improved health of rectal tissues - NEW GOAL OF Daily Plan of Care Comments -Progress proximal strengthening: consider squats , penguins, wall squat hinge, palloff press, monster walks, lunges, baldned clams, squats with band, lateral hops squat jumps. Review HEP and progress . 50% scar / 50% exercises -Penguins -Running man exercise *Continue scar mobilization 10th Visit Recertification Information Initial Certification Date 12/12/23 Recertification Start Date 06/16/24 Recertification Due Date 09/13/24 Reasons to Continue Skilled Therapy Pt had been seen for lower abdominal pain, incomplete bladder emptying s/p delivery for 17 visits from to 06/15/24 during this episode of physical therapy. Most recent cert dates from 06/25/24 - 06/15/24 for a total of 7 visits. Focus of therapy on scar mobilization, spine/hip mobility/ROM, deep breathing for PF lengthening, proximal stabilization/ strengthening of pelvic floor, gluts and lower abdominals. Interventions including ther exercise, manual therapy, self -care, neuromuscular re- education. 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 Pt continues to show benefit from further skilled PT indicated at this time. Pt agreeable with POC and discharge at this time. Goal progress noted above. Skilled PT continue to work on improving mobility of rectal tissues to reduce recurrence of fissures / hemorrhoids, proximal strengthening, and scar mobility. Pt to benefit from ongoing PT at a frequency of every other wk x 10 visits within 90 days Provider Signature Shows Agreement With POC & Medical Necessity Physician Comment/Change Comment or Changes Physician NPI Number #
--- NOTE | 2024-09-10 10:08 | PT.OPDNX ---
[facility] Daily Note PT [facility] Daily Note Start: 12/12/23 07:32 Freq: Status: Active Protocol: Document 09/10/24 07:41 ARR (Rec: 09/10/24 08:37 ARR [email or web address]) E-signed By Prema Hawthorne DPT PT OP Daily Progress Note Visit Information Note Type Daily Note,Recert/Progress Note Visit Number 4 Running Total Visit Number 21 Insurance Information Recert Due Date 12/08/24 Insurance Name Medicaid,are Insurance Information/Comments EVAL 12/12 -/ // / - 6/ // / - / // / - / /06/16-09/10 - ? 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 Knee has been doing better due to this but still is bothersome even with exercises. -Has had more issues with fissures this week. Will reach out to surgeon -Still working on Feel[place]ilda that tailbone is bulging with abs Pain Comments 3.5 fingers at rest curl up 2 fingers Home Exercise Home Exercise Comments OTHER: -desensitization handout 12/12 2 x 3-5 min daily - reminders 12/12 -Scar tissue mobilization handout 01/07 -01/28 - sh with TA bracing vs upper ab gripping, sitting on toilet daily and increasing carbs into diet Access Code: [email or web address] URL: [email or web address]/ Date: 12/12/2023 Prepared by: Prema Hawthorne Access Code: [email or web address] URL: [email or web address]/ Date: 02/12/2024 Prepared by: Prema Hawthorne Exercises - Tall Kneeling Hip Hinge - 1 x daily - 3-4 x weekly - 2 sets - 6-8 reps - Quadruped Diaphragmatic Breathing - 1 x daily - 3-4 x weekly - 1-2 sets - 6-8 reps - Seated Hip Adduction Isometrics with Ball - 1 x daily - 3-4 x weekly - 2 sets - 6-8 reps Objective Other/Pertinent Objective 07/06: DR 2 fingers above and below, <1 knuckle depth INTERNAL EXAMINATION INTRAVAGINAL 01/08/24: -Sensation: intact to touch -Observation: WNL -Perineum: normal -Cough: reflexive contraction -Lifting contraction: visible lift -Bulge: bulge Tenderness/pain to palpation/ tone: -Layer 1: superficial transverse perineal on R -Layer 2: deep transverse perineal / sphincter urethrovaginalis on R -Layer 3: puborectalis on R -Pelvic wall: obturator internus on R Inc'd tone and TTP on muscles on R side. Global TTP over perineum with R sided > than L side Strength ( R / C / L): Vaginally and rectally -Power (MMT):3 -Endurance: 8 -Reps: 3 -Fast twitch: 2 (able to do 10 but at reduced strength of contraction) -Relaxation of PFM after quick contractions: normal Other: -Breathing examination: dec?d posterior and lateral ribcage mvmt with inhalation -Coordination: inc'd upper ab gripping with bearing down into lower abdominal area RECTAL: palpation: TTP at 4-6 oclock with reduced tissue mobility. Strength as above. EAS circumferential squeeze EXTERNAL OBJECTIVE 01/22/24: -Movement screen: MS flexion reduced TS, LS, HS. MS extension reduced TS, LS, and into abdominal wall. MS rotaiton WNL. -SLS: holding 30 sec, level pelvis. -Posture: level IC. inc'd PPT -Hip PROM: ER 70, IR 20, extension limited 10* bilat -Strength: glut medius 2+ bilat Other Tests: -Coordination: bearing down into lower abs with TA activation -Breathing: dec?d posterior and lateral ribcage mvmt with inhalation -Flexibility: pos HF, HS bilat Patient Instructed in Risks/Benefits Yes Neuromuscular Re-Ed Neuromuscular Reeducation Minutes ( 45 minutes) Neuromuscular Reeducation Comments NMR: Indicated to facilitate improved muscle firing and postural awareness through the use of tactile cues. Supine: -TA with march x 6 reps ea side -TA with ball press and december x 6 reps ea side -90/90 breathing under brace 2 x 45 sec -Palloff press standing - poor ab control -Sh abduction x 10 reps RTB -Standing exhale TA belly flattening x 10 reps - use of mirror -Supine TA with december focus on belly flattening x 6 reps ea side -Modified side plank x 6 reps ea side. With ball press x 6 reps -Single heel raise focusing on keeping knee in line and pressed out for glut firing Self Care Management Training Self-Care Activity Minutes (minutes) 10 Self Care Management Training Education: -Discussion on various options for fissures and treatment including silicone lubricant. Discussed importance for tissue healing. To discuss with provider Treatment Minutes Timed Code Treatment Minutes 55 Total Treatment Time 55 Billing Units Neuromuscular Reeducation Units 3 Self-Care Activity Units 1 Assessment/Impression Assessment/Impression Pt had been seen for low abdominal pain, incomplete bladder emptying for 21 visits throughout this plan of care. During most recent certification period patient has been seen for x 4 visits from 06/16-09/10. Reduced frequency in PT was indicated to allow for greater at home mgmt of symptoms. Pt has required prolonged/extended time in PT due to complexity of symptoms. Pt's symptoms included targeting scar mobilization/treatment , recurring anal fissures/hemorrhoids, and proximal coordination of PFTA and gluts. Pt then had development of increasing DR. THis likely due to poor motor coordination patterns, which has been the focus in the last several therapy sessions. Pt continues to combat anal fissures, pt to reach back out to colorectal surgeon for additional guidance. Interventions including ther exercise, manual therapy, self -care, neuromuscular re- education. Pt at this time has not yet met all goals and would benefit from ongoing therapy at a frequency every 2 -3 wks x an additional 8 visits in 90 days. Pt has not yet met maximal therapeutic benefit and ongoing therapy is indicated. Plan of Care Physical Therapy Goals STG (within 10 visits ) 1) Pt will demonstrate proper coordination of motor recruitment patterns for PF then TA activation during isometric activation while maintaining diaphragmatic breathing pattern - MET 2 ) Pt will report 0/10 pain with palpation of PFM layers 1 -3 to show reduced tissue irritability - MET 3) Pt will demonstrate at least 3/5 PFC via modified oxford scale - PROGRESSINGTOWARD 4) Pt will complete return to run readiness screen without any pelvic floor symptoms to show readiness to start return to run program (at least 12+ weeks ) - MET LTG (within 20 visits) - ALL UNMET 1) Pt will demonstrate proper coordination of motor recruitment patterns for PF then TA activation during dynamic UE/LE movements in all postures while maintaining diaphragmatic breathing pattern - PROGRESSING TOWARD 2)Pt will demonstrate ability to complete at least 10 quick contractions of PFM with full relaxation between reps in order to reduce incontinence with increases in IAP - PROGRESSING TOWARD 3) Pt will return to running using walk/run program without increased pain, urinary leakage or urgency. - PROGRESSING TOWARD, PATIENT ON INTERVAL TRAINING 4) Pt will report Marinoff scale score less than 2 - MET 5) Pt will report ability to fully empty bladder and bowels without pain and no straining - MET 6) Pt will report no flare of rectal pain within a period of at least 30 days to show improved health of rectal tissues - UNMET Daily Plan of Care Comments Consider STM into abdominal wall/obliques to improve TA coordination -Progress proximal strengthening: consider squats , penguins, wall squat hinge, palloff press, monster walks, lunges, baldned clams, squats with band, lateral hops squat jumps. Review HEP and progress . 50% scar / 50% exercises -Penguins -Running man exercise Recertification Information Initial Certification Date 12/12/23 Recertification Start Date 09/11/24 Recertification Due Date 12/08/24 Reasons to Continue Skilled Therapy Pt had been seen for low abdominal pain, incomplete bladder emptying for 21 visits throughout this plan of care. During most recent certification period patient has been seen for x 4 visits from 06/16-09/10. Reduced frequency in PT was indicated to allow for greater at home mgmt of symptoms. Pt has required prolonged/extended time in PT due to complexity of symptoms. Pt's symptoms included targeting scar mobilization/treatment , recurring anal fissures/hemorrhoids, and proximal coordination of PFTA and gluts. Pt then had development of increasing DR. THis likely due to poor motor coordination patterns, which has been the focus in the last several therapy sessions. Pt continues to combat anal fissures, pt to reach back out to colorectal surgeon for additional guidance. Interventions including ther exercise, manual therapy, self -care, neuromuscular re- education. Pt at this time has not yet met all goals and would benefit from ongoing therapy at a frequency every 2 -3 wks x an additional 8 visits in 90 days. Pt has not yet met maximal therapeutic benefit and ongoing therapy is indicated. Provider Signature Shows Agreement With POC & Medical Necessity Physician Comment/Change Comment or Changes Physician NPI Number #
--- NOTE | 2024-12-24 09:48 | PT.OPDNX ---
PT [facility] Out[facility] Daily Note PT [facility] Outpatient Daily Note Start: 12/12/23 07:32 Freq: Status: Active Protocol: Document 12/22/24 07:35 ARR (Rec: 12/22/24 09:35 ARR [email or web address]) E-signed By Prema Hawthorne DPT PT OP Daily Progress Note Visit Information Note Type Daily Note,Recert/Progress Note Visit Number 1 Running Total Visit Number 23 Insurance Information Recert Due Date 03/08/25 Insurance Name Medicaid,are Insurance Information/Comments EVAL 12/12 -/ /01/28 - /03/27 - 06/24 - /06/16-09/10 - 12/08/23 /12/09/23 - ? POC 1 x 20 // 1 X 20 // every other week x 10 visits in 90 days // every 2-3 wks x 6 visits in 90 days Medical Diagnosis Z98.891 history of uterine scar from previous surgery N94.2 vaginismus N94.810 vulvar vestibulitis S/p Repeat low transverse c- section Treating Diagnosis R10.30 Lower abdominal pain, unspecified R39.14 Feeling of incomplete bladder emptying Referring MD Kanwal Messer MD Subjective Subjective -Had fissure last week, will have a tearing sensation that feels like it's ripping open - hadn't had once since Aug. Bummed that it did recur. Getting closer to period hemorrhoid can flare - feels its cyclic in nature. Did reach out to provider for options for creams. -Feeling confident engaging lower abs with exercises. Feels improvement with DR, feels like it's less. -13 mo out from wondering about amount of scar tissue -Running has been going well, knee has been getting less irritable. Wondering if there' s a stretch -Stopped doing glut strengthening exercises bc tailbone was really getting irritable. Things that can aggravate includes crossing legs and glut strengthening. Noticed especially Home Exercise Home Exercise Comments OTHER: -desensitization handout 12/12 2 x 3-5 min daily - reminders 12/12 -Scar tissue mobilization handout 01/07 -01/28 - sh with TA bracing vs upper ab gripping, sitting on toilet daily and increasing carbs into diet Access Code: [email or web address] URL: [email or web address] Date: 12/12/2023 Prepared by: Prema Hawthorne Access Code: [email or web address] URL: [email or web address] Date: 02/12/2024 Prepared by: Prema Hawthorne Exercises - Tall Kneeling Hip Hinge - 1 x daily - 3-4 x weekly - 2 sets - 6-8 reps - Quadruped Diaphragmatic Breathing - 1 x daily - 3-4 x weekly - 1-2 sets - 6-8 reps - Seated Hip Adduction Isometrics with Ball - 1 x daily - 3-4 x weekly - 2 sets - 6-8 reps Objective Other/Pertinent Objective 12/22/24: increased tone PC/UT bilaterally. TTP R DTP and ischiocavernosus. PFC noting inc'd posterior PFC with AP lift with minimal squeeze. Bridge reproducing tailbone pain INTERNAL EXAMINATION INTRAVAGINAL 01/08/24: -Sensation: intact to touch -Observation: WNL -Perineum: normal -Cough: reflexive contraction -Lifting contraction: visible lift -Bulge: bulge Tenderness/pain to palpation/ tone: -Layer 1: superficial transverse perineal on R -Layer 2: deep transverse perineal / sphincter urethrovaginalis on R -Layer 3: puborectalis on R -Pelvic wall: obturator internus on R Inc'd tone and TTP on muscles on R side. Global TTP over perineum with R sided > than L side Strength ( R / C / L): Vaginally and rectally -Power (MMT):3 -Endurance: 8 -Reps: 3 -Fast twitch: 2 (able to do 10 but at reduced strength of contraction) -Relaxation of PFM after quick contractions: normal Other: -Breathing examination: dec?d posterior and lateral ribcage mvmt with inhalation -Coordination: inc'd upper ab gripping with bearing down into lower abdominal area RECTAL: palpation: TTP at 4-6 oclock with reduced tissue mobility. Strength as above. EAS circumferential squeeze EXTERNAL OBJECTIVE 01/22/24: -Movement screen: MS flexion reduced TS, LS, HS. MS extension reduced TS, LS, and into abdominal wall. MS rotaiton WNL. -SLS: holding 30 sec, level pelvis. -Posture: level IC. inc'd PPT -Hip PROM: ER 70, IR 20, extension limited 10* bilat -Strength: glut medius 2+ bilat Other Tests: -Coordination: bearing down into lower abs with TA activation -Breathing: dec?d posterior and lateral ribcage mvmt with inhalation -Flexibility: pos HF, HS bilat Patient Instructed in Risks/Benefits Yes Therapeutic Exercise Therapeutic Exercise Minutes (minutes) 15 Therapeutic Exercise: To Restore TE: Indicated for improvement Functional Status in strengthening and mobility. -Handouts with written instructions and photographs of exercises were issued to the patient for exercises to be included in HEP. Answered patient questions regarding POC, and mobility/stretches to perform if pain occurs -Objective as above Education: -Adductor rock backs -Quadruped rock backs -Piriformis stretch *Focus on posterior PFM opening and deep breathing Manual Therapy Techniques Manual Therapy Minutes (minutes) 10 Manual Therapy Techniques MT: indicated for improving joint mobility, reducing tissue irritability, and improving range of motion. Hooklying intravaginal w/ consent: -STM layer 3 -Gentle posterior PF glides with inferior glide to LA muscles. Contract relax with OP into PFM lengthening after 25% PFC -Strumming along coccygeus along mm belly Neuromuscular Re-Ed Neuromuscular Reeducation Minutes ( 20 minutes) Neuromuscular Reeducation Comments NMR: Indicated to facilitate improved muscle firing and postural awareness through the use of tactile cues. Transvaginal w/consent: -Deep breathing x 5 reps -Bridge with glut focus reduced ROM x 5 reps -Supine heel press x 5 reps -Supine heel press with lift 2 x5 reps External -Prone heel press x 5 reps Self Care Management Training Self-Care Activity Minutes (minutes) 10 Self Care Management Training Sitting cross legged education to monitor for sxs -Checking for muscle tension in thighs when crossing legs -Check for PFC engagement Treatment Minutes Timed Code Treatment Minutes 55 Total Treatment Time 55 Billing Units Manual Therapy Units 1 Neuromuscular Reeducation Units 1 Self-Care Activity Units 1 Therapeutic Exercise Units 1 Assessment/Impression Assessment/Impression Pt had been seen for low abdominal pain, incomplete bladder emptying for 22 visits throughout this plan of care. During most recent certification period patient has been seen for only x 1 visits from 09/28/24-12/08/24. Only x 1 visit during this period occurred due to physical therapist being out of office and needing to cancel pt's visits. Thus, continued PT is indicated as patient continues to have recurring fissures, onset of tailbone pain with activity, limiting functional mobility and ability to have bowel mvmts. Continued assessment this date noting poor lengthening into PFM with simulated defecation with bearing down. Minimal change in tissues with bearing down. PT is indicated to continue at a frequency of every 2-3 wks for an additional 6 visits within 90 days. Pt has required prolonged/extended time in PT due to complexity of symptoms. Pt's symptoms included targeting scar mobilization/treatment , recurring anal fissures/hemorrhoids, and proximal coordination of PFTA and gluts. Pt then had development of increasing DR that has been continually been addressed. As previously mentioned, pt continues to combat anal fissures, pt plans to obtain second opinion with alternative colorectal surgeon for additional guidance. However, likely influencing this is difficulty with reverse kegel lengthening into PFM and increased PFM tension into UT/ PC bilat. Interventions including ther exercise, manual therapy, self-care, neuromuscular re-education. Pt at this time has not yet met all goals and would benefit from ongoing therapy. Pt has not yet met maximal therapeutic benefit and ongoing therapy is indicated. Plan of Care Physical Therapy Goals STG (within 10 visits ) 1) Pt will demonstrate proper coordination of motor recruitment patterns for PF then TA activation during isometric activation while maintaining diaphragmatic breathing pattern - MET 2 ) Pt will report 0/10 pain with palpation of PFM layers 1 -3 to show reduced tissue irritability - MET 3) Pt will demonstrate at least 3/5 PFC via modified oxford scale - PROGRESSINGTOWARD 4) Pt will complete return to run readiness screen without any pelvic floor symptoms to show readiness to start return to run program (at least 12+ weeks ) - MET LTG (within 20 visits) - ALL UNMET 1) Pt will demonstrate proper coordination of motor recruitment patterns for PF then TA activation during dynamic UE/LE movements in all postures while maintaining diaphragmatic breathing pattern - PROGRESSING TOWARD 2)Pt will demonstrate ability to complete at least 10 quick contractions of PFM with full relaxation between reps in order to reduce incontinence with increases in IAP - PROGRESSING TOWARD 3) Pt will return to running using walk/run program without increased pain, urinary leakage or urgency. - PROGRESSING TOWARD, PATIENT ON INTERVAL TRAINING 4) Pt will report Marinoff scale score less than 2 - MET 5) Pt will report ability to fully empty bladder and bowels without pain and no straining - MET 6) Pt will report no flare of rectal pain within a period of at least 30 days to show improved health of rectal tissues - UNMET Daily Plan of Care Comments Consider STM into abdominal wall/obliques to improve TA coordination -Progress proximal strengthening: consider squats , penguins, wall squat hinge, palloff press, monster walks, lunges, baldned clams, squats with band, lateral hops squat jumps. Review HEP and progress . 50% scar / 50% exercises -Penguins -Running man exercise Recertification Information Initial Certification Date 12/12/23 Recertification Start Date 12/09/24 Recertification Due Date 03/08/25 Reasons to Continue Skilled Therapy Pt had been seen for low abdominal pain, incomplete bladder emptying for 22 visits throughout this plan of care. During most recent certification period patient has been seen for only x 1 visits from 09/28/24-12/08/24. Only x 1 visit during this period occurred due to physical therapist being out of office and needing to cancel pt's visits. Thus, continued PT is indicated as patient continues to have recurring fissures, onset of tailbone pain with activity, limiting functional mobility and ability to have bowel mvmts. Continued assessment this date noting poor lengthening into PFM with simulated defecation with bearing down. Minimal change in tissues with bearing down. PT is indicated to continue at a frequency of every 2-3 wks for an additional 6 visits within 90 days. Pt has required prolonged/extended time in PT due to complexity of symptoms. Pt's symptoms included targeting scar mobilization/treatment , recurring anal fissures/hemorrhoids, and proximal coordination of PFTA and gluts. Pt then had development of increasing DR that has been continually been addressed. As previously mentioned, pt continues to combat anal fissures, pt plans to obtain second opinion with alternative colorectal surgeon for additional guidance. However, likely influencing this is difficulty with reverse kegel lengthening into PFM and increased PFM tension into UT/ PC bilat. Interventions including ther exercise, manual therapy, self-care, neuromuscular re-education. Pt at this time has not yet met all goals and would benefit from ongoing therapy. Pt has not yet met maximal therapeutic benefit and ongoing therapy is indicated. Goals above are unchanged as patient had only been seen x 1 visit since last recertification period and is continuing to make progress toward goals. Provider Signature Shows Agreement With POC & Medical Necessity Physician Comment/Change Comment or Changes Physician NPI Number #
--- NOTE | 2025-03-01 12:07 | PT.OPDNX ---
PT [facility] Out[facility] Daily Note PT [facility] Out[facility] Daily Note Start: 12/12/23 07:32 Freq: Status: Active Protocol: Document 03/01/25 07:44 ARR (Rec: 03/01/25 09:46 ARR [email or web address]) E-signed By Prema Hawthorne DPT PT OP Daily Progress Note Visit Information Note Type Daily Note,Recert/Progress Note Visit Number 1 Running Total Visit Number 24 Insurance Information Recert Due Date 05/30/25 Insurance Name Medicaid,are Insurance Information/Comments EVAL 12/12 -/ /01/28 - / /03/27 - / /06/25 - / /06/16-09/10 - 12/08/23 /12/09/23 - 03/01/25 / - ?? POC 1 x 20 // 1 X 20 // every other week x 10 visits in 90 days // every 2-3 wks x 6 visits in 90 days // every 2-3 weeks x 6 visits in 90 days Medical Diagnosis Z98.891 history of uterine scar from previous surgery N94.2 vaginismus N94.810 vulvar vestibulitis S/p Repeat low transverse c- section Treating Diagnosis R10.30 Lower abdominal pain, unspecified R39.14 Feeling of incomplete bladder emptying Referring MD Kanwal Messer MD Subjective Subjective - No UTI's or fissures since last session back in December. Has been incorporating more back into diet with dairy. 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 Hemorrhoids recur along with month cycle. -Tailbone discomfort less since last session. Clams don' t bother them. Running hasn't irritated it at all. Tailbone will occasionally irritate. -Stopped doing heel press. Squats were bothering tailbone -Cupping has been doing back into it. Not doing as much Pain Comments -scar tissue -glut exercises Home Exercise Home Exercise Comments OTHER: -desensitization handout 12/12 2 x 3-5 min daily - reminders 12/12 -Scar tissue mobilization handout 01/07 -01/28 - sh with TA bracing vs upper ab gripping, sitting on toilet daily and increasing carbs into diet Access Code: [email or web address] URL: [email or web address]/ Date: 12/12/2023 Prepared by: Prema Hawthorne Access Code: [email or web address] URL: [email or web address]/ Date: 02/12/2024 Prepared by: Prema Hawthorne Exercises - Tall Kneeling Hip Hinge - 1 x daily - 3-4 x weekly - 2 sets - 6-8 reps - Quadruped Diaphragmatic Breathing - 1 x daily - 3-4 x weekly - 1-2 sets - 6-8 reps - Seated Hip Adduction Isometrics with Ball - 1 x daily - 3-4 x weekly - 2 sets - 6-8 reps Objective Other/Pertinent Objective 12/22/24: increased tone PC/LA bilaterally. TTP R DTP and ischiocavernosus. PFC noting inc'd posterior PFC with AP lift with minimal squeeze. Bridge reproducing tailbone pain INTERNAL EXAMINATION INTRAVAGINAL 01/08/24: -Sensation: intact to touch -Observation: WNL -Perineum: normal -Cough: reflexive contraction -Lifting contraction: visible lift -Bulge: bulge Tenderness/pain to palpation/ tone: -Layer 1: superficial transverse perineal on R -Layer 2: deep transverse perineal / sphincter urethrovaginalis on R -Layer 3: puborectalis on R -Pelvic wall: obturator internus on R Inc'd tone and TTP on muscles on R side. Global TTP over perineum with R sided > than L side Strength ( R / C / L): Vaginally and rectally -Power (MMT):3 -Endurance: 8 -Reps: 3 -Fast twitch: 2 (able to do 10 but at reduced strength of contraction) -Relaxation of PFM after quick contractions: normal Other: -Breathing examination: dec?d posterior and lateral ribcage mvmt with inhalation -Coordination: inc'd upper ab gripping with bearing down into lower abdominal area RECTAL: palpation: TTP at 4-6 oclock with reduced tissue mobility. Strength as above. EAS circumferential squeeze EXTERNAL OBJECTIVE 01/22/24: -Movement screen: MS flexion reduced TS, LS, HS. MS extension reduced TS, LS, and into abdominal wall. MS rotaiton WNL. -SLS: holding 30 sec, level pelvis. -Posture: level IC. inc'd PPT -Hip PROM: ER 70, IR 20, extension limited 10* bilat -Strength: glut medius 2+ bilat Other Tests: -Coordination: bearing down into lower abs with TA activation -Breathing: dec?d posterior and lateral ribcage mvmt with inhalation -Flexibility: pos HF, HS bilat Patient Instructed in Risks/Benefits Yes Therapeutic Exercise Therapeutic Exercise Minutes (minutes) 10 Therapeutic Exercise: To Restore TE: Indicated for improvement Functional Status in strengthening and mobility. -Handouts with written instructions and photographs of exercises were issued to the patient for exercises to be included in HEP. Answered patient questions regarding POC, and mobility/stretches to perform if pain occurs -Seated hip IR stretch -Quadruped breathing into hip with yoga block Manual Therapy Techniques Manual Therapy Minutes (minutes) 30 Manual Therapy Techniques MT: indicated for improving joint mobility, reducing tissue irritability, and improving range of motion. -Scar tissue mobilization along course of scar focusing directly over and inferior to scar. Pt instructed how to increase depth of scar tissue mobilization -Cupping along scar and above/ below. Using mvmt and also MWM and static stretch. Neuromuscular Re-Ed Neuromuscular Reeducation Minutes ( 20 minutes) Neuromuscular Reeducation Comments NMR: Indicated to facilitate improved muscle firing and postural awareness through the use of tactile cues. -Quadruped hip IR with yellow TB 2 x 10 reps -Kneeling glut finder 3 x 5 reps feet neutral dist apart. Cues for less effort to improve glut coordination Treatment Minutes Timed Code Treatment Minutes 60 Total Treatment Time 60 Billing Units Manual Therapy Units 2 Neuromuscular Reeducation Units 1 Therapeutic Exercise Units 1 Assessment/Impression Assessment/Impression Noting restriction of scar tissue at and below scar, greatest on R side. Education for progression of scar tissue mobilization was completed this date. Pt had stopped doing glut strengthening due to flare/onset of tailbone pain. This likely due to PFC and deep hip rotator over- recruitment. Improved with breathing and focus on hip IR strengthening first. Pt to benefit from ongoing PT - see below for clinical reasoning for ongoing therapy. Plan of Care Physical Therapy Goals STG (within 10 visits ) 1) Pt will demonstrate proper coordination of motor recruitment patterns for PF then TA activation during isometric activation while maintaining diaphragmatic breathing pattern - MET 2 ) Pt will report 0/10 pain with palpation of PFM layers 1 -3 to show reduced tissue irritability - MET 3) Pt will demonstrate at least 3/5 PFC via modified oxford scale - MET 4) Pt will complete return to run readiness screen without any pelvic floor symptoms to show readiness to start return to run program (at least 12+ weeks ) - MET LTG (within 20 visits) - ALL UNMET 1) Pt will demonstrate proper coordination of motor recruitment patterns for PF then TA activation during dynamic UE/LE movements in all postures while maintaining diaphragmatic breathing pattern - PROGRESSING TOWARD 2)Pt will demonstrate ability to complete at least 10 quick contractions of PFM with full relaxation between reps in order to reduce incontinence with increases in IAP - PROGRESSING TOWARD 3) Pt will return to running using walk/run program without increased pain, urinary leakage or urgency. - PROGRESSING TOWARD, PATIENT ON INTERVAL TRAINING 4) Pt will report Marinoff scale score less than 2 - MET 5) Pt will report ability to fully empty bladder and bowels without pain and no straining - MET 6) Pt will report no flare of rectal pain within a period of at least 30 days to show improved health of rectal tissues - UNMET Daily Plan of Care Comments -Review glut exercises -Do continued STM into abdominal wall, consider FDN into scar Recertification Information Initial Certification Date 12/12/23 Recertification Start Date 03/09/25 Recertification Due Date 05/30/25 Reasons to Continue Skilled Therapy Pt had been seen for low abdominal pain, incomplete bladder emptying for 24 visits throughout this plan of care. During most recent certification period patient has been seen for only x 1 visits from 12/09/24 -03/01/25. Only x 1 visit during this period occurred due to scheduling conflicts. Thus, continued PT is indicated as patient has not met maximal therapeutic improvement. Pt has seen positive change with reduced fissure recurrence since initial evaluation which is significant as this recurrence had been slowing progress during this recovery. Pt to benefit from ongoing therapy as she has been limited by onset of tailbone pain, worsened with glut strengthenign exercises, this is likely due to over- recruitment of posterior PF and deep hip rotators vs engaging glut max. Pt to benefit from ongoing therapy to progress strength and continue to reduce scar tissue s/p . PT is indicated to continue at a frequency of every 2-3 wks for an additional 6 visits within 90 days. Pt has required prolonged/extended time in PT due to complexity of symptoms. Pt's symptoms included targeting scar mobilization/treatment , recurring anal fissures/hemorrhoids, and proximal coordination of PFTA and gluts. Pt then had development of increasing DR that has been continually been addressed. As previously mentioned, pt continues to combat anal fissures that have now been resolving without need for surgical intervention . Interventions including ther exercise, manual therapy, self-care, neuromuscular re- education. Pt at this time has not yet met all goals and would benefit from ongoing therapy. Pt has not yet met maximal therapeutic benefit and ongoing therapy is indicated. Goals above are unchanged as patient had only been seen x 1 visit since last recertification period and is continuing to make progress toward goals. Provider Signature Shows Agreement With POC & Medical Necessity Physician Comment/Change Comment or Changes Physician NPI Number #
--- NOTE | 2025-06-04 10:48 | PT.OPDNX ---
[facility] Daily [facility] Start: 12/12/23 07:32 Freq: Status: Active Protocol: Document 06/03/25 12:04 ARR (Rec: 06/03/25 13:06 ARR [email or web address]) E-signed By Prema Hawthorne DPT PT OP Daily Progress Note Visit Information Note Type Daily Note,Recert/Progress Note Visit Number 4 Running Total Visit 27 Number Insurance Information Recert Due Date 07/15/25 Insurance Name Medicaid,[employer] Insurance EVAL 12/12 -/ // 01/28 - / /03/27 - / /06/25 - / Information/Comments 06/16-/09/11 - 12/08/23 /12/09/23 - / /03/02/25 - ?? POC 1 x 20 // 1 X 20 // every other week x 10 visits in 90 days // every 2-3 wks x 6 visits in 90 days // every 2-3 weeks x 6 visits in 90 days Medical Diagnosis Z98.891 history of uterine scar from previous surgery N94.2 vaginismus N94.810 vulvar vestibulitis S/p Repeat low transverse Treating Diagnosis R10.30 Lower abdominal pain, unspecified R39.14 Feeling of incomplete bladder emptying Referring MD Kanwal Messer MD Subjective Subjective -Doing well no fissures since December. Minimal hemorrhoids -Had a long car ride to [place] and that seemed to irritate it. Did modify HEP to accommodate for this. Did use a donut to sit. -Did do a slip and slide at home and felt a lot of irritation to the abdominal wall Home Exercise Home Exercise OTHER: Comments -desensitization handout 12/12 2 x 3-5 min daily - reminders 12/12 -Scar tissue mobilization handout 01/07 -01/28 - sh with TA bracing vs upper ab gripping, sitting on toilet daily and increasing carbs into diet Access Code: [email or web address] URL: [email or web address] Date: 12/12/2023 Prepared by: Prema Hawthorne Access Code: [email or web address] URL: [email or web address] Date: 02/12/2024 Prepared by: Prema Hawthorne Exercises - Tall Kneeling Hip Hinge - 1 x daily - 3-4 x weekly - 2 sets - 6-8 reps - Quadruped Diaphragmatic Breathing - 1 x daily - 3-4 x weekly - 1-2 sets - 6-8 reps - Seated Hip Adduction Isometrics with Ball - 1 x daily - 3-4 x weekly - 2 sets - 6-8 reps Objective Other/Pertinent 12/22/24: increased tone PC/ID bilaterally. TTP R DTP and Objective ischiocavernosus. PFC noting inc'd posterior PFC with AP lift with minimal squeeze. Bridge reproducing tailbone pain INTERNAL EXAMINATION INTRAVAGINAL 01/08/24: -Sensation: intact to touch -Observation: WNL -Perineum: normal -Cough: reflexive contraction -Lifting contraction: visible lift -Bulge: bulge Tenderness/pain to palpation/tone: -Layer 1: superficial transverse perineal on R -Layer 2: deep transverse perineal / sphincter urethrovaginalis on R -Layer 3: puborectalis on R -Pelvic wall: obturator internus on R Inc'd tone and TTP on muscles on R side. Global TTP over perineum with R sided > than L side Strength ( R / C / L): Vaginally and rectally -Power (MMT):3 -Endurance: 8 -Reps: 3 -Fast twitch: 2 (able to do 10 but at reduced strength of contraction) -Relaxation of PFM after quick contractions: normal Other: -Breathing examination: dec?d posterior and lateral ribcage mvmt with inhalation -Coordination: inc'd upper ab gripping with bearing down into lower abdominal area RECTAL: palpation: TTP at 4-6 oclock with reduced tissue mobility. Strength as above. EAS circumferential squeeze EXTERNAL OBJECTIVE 01/22/24: -Movement screen: MS flexion reduced TS, LS, HS. MS extension reduced TS, LS, and into abdominal wall. MS rotaiton WNL. -SLS: holding 30 sec, level pelvis. -Posture: level IC. inc'd PPT -Hip PROM: ER 70, IR 20, extension limited 10* bilat -Strength: glut medius 2+ bilat Other Tests: -Coordination: bearing down into lower abs with TA activation -Breathing: dec?d posterior and lateral ribcage mvmt with inhalation -Flexibility: pos HF, HS bilat Patient Instructed Yes in Risks/Benefits Neuromuscular Re-Ed Neuromuscular 55 Reeducation Minutes (minutes) Neuromuscular NMR: Indicated to facilitate improved muscle firing and Reeducation Comments postural awareness through the use of tactile cues. -TA unilateral LE december 2 x 8 reps. -90/90 heel taps alt LE 2 x 3 reps - cues for ribs down -TA unilateral LE march x 8 reps. - cues for ribs down -Bridge x 10 reps -Moving plank x 8 reps -Palloff press x 8 reps R side. standing. Seated L side x 8 reps -Supine palloff x 8 reps ea side Treatment Minutes Timed Code Treatment 55 Minutes Total Treatment Time 55 Billing Units Neuromuscular 4 Reeducation Units Assessment/Impression Assessment/ Improved scar mobility after FDN as above. Continued to Impression progress glut strengthening without onset of tailbone pain with increased load and instability. No onset of tailbone pain during session, a significant improvement from a few weeks ago. Continues to require verbal cues for form and breathing. Plan of Care Physical Therapy STG (within 10 visits ) Goals 1) Pt will demonstrate proper coordination of motor recruitment patterns for PF then TA activation during isometric activation while maintaining diaphragmatic breathing pattern - MET 2 ) Pt will report 0/10 pain with palpation of PFM layers 1-3 to show reduced tissue irritability - MET 3) Pt will demonstrate at least 3/5 PFC via modified oxford scale - MET 4) Pt will complete return to run readiness screen without any pelvic floor symptoms to show readiness to start return to run program (at least 12+ weeks ) - MET LTG (within 20 visits) - ALL UNMET 1) Pt will demonstrate proper coordination of motor recruitment patterns for PF then TA activation during dynamic UE/LE movements in all postures while maintaining diaphragmatic breathing pattern - PROGRESSING TOWARD 2)Pt will demonstrate ability to complete at least 10 quick contractions of PFM with full relaxation between reps in order to reduce incontinence with increases in IAP - PROGRESSING TOWARD 3) Pt will return to running using walk/run program without increased pain, urinary leakage or urgency. - PROGRESSING TOWARD, PATIENT ON INTERVAL TRAINING 4) Pt will report Marinoff scale score less than 2 - MET 5) Pt will report ability to fully empty bladder and bowels without pain and no straining - MET 6) Pt will report no flare of rectal pain within a period of at least 30 days to show improved health of rectal tissues - UNMET Recertification Information Initial 12/12/23 Certification Date Recertification 04/13/25 Start Date Recertification Due 07/15/25 Date Reasons to Continue Pt had been seen for low abdominal pain, incomplete Skilled Therapy bladder emptying for 26 visits throughout this plan of care. During most recent certification period patient had been seen for x 3 visits from 03/02/25-04/12/25. Focus of therapy on hip/spine ROM, deep breathing, PF lengthening, with progression to proximal coordination of PFTA and gluts. Treatment also included education optimizing bowel and bladder health for symptom reduction/mgmt. Interventions including ther exercise, manual therapy, self-care, neuromuscular re-education. Pt to benefit from ongoing therapy for an additional x 3 visits within 90 days. This is warranted to trial greater indep mgmt of symptoms without PT intervention. Pt ready for greater trial of indep mgmt of symptoms. Pt to continue independently at this time with compliance to HEP and lifestyle changes. Pt has all handouts to refer to at this time including HEP exercises and bladder/bowel health education. If any flares occur, pt to contact provider and schedule additional appt. If PT has not heard back from pt within 60 days, will assume all is going well and DC at that time. Pt agreeable with this plan Provider Signature POC & Medical Necessity Shows Agreement With Physician Comment/ Comment or Changes Change Physician NPI Number #
== END 2025-10-01 13:16 | disposition home or self-care (01) ==
PROVIDERS: PCP Family Medicine; Visit Provider Obstetrics & Gynecology
DX: N94.810 Vulvar vestibulitis (principal); N94.2 Vaginismus; Z98.891 History of uterine scar from previous surgery; Z51.89 Encounter for other specified aftercare
CPT/HCPCS: 97110; 97112; 97140; 97161; 97535

== ENCOUNTER 2025-06-06 08:30 | Outpatient (CLI) | payer MEDICAID, SELFPAY | END 2025-06-06 08:31 | disposition home or self-care (01) | LOC: NFLDREF 06-09 14:53 | PROVIDERS: Visit Provider Nurse Practitioner Family | DX: N30.90 Cystitis, unspecified without hematuria (principal); B96.20 Unspecified Escherichia coli [E. coli] as the cause of diseases classified elsewhere | CPT/HCPCS: 87086 ==

== ENCOUNTER 2025-07-21 10:52 | Outpatient (CLI) | payer MEDICAID, SELFPAY | END 2025-07-21 10:53 | disposition home or self-care (01) | LOC: NFLDREF 10:56 | PROVIDERS: Visit Provider Obstetrics & Gynecology | DX: N39.0 Urinary tract infection, site not specified (principal) | CPT/HCPCS: 87086 ==

== ENCOUNTER 2025-08-10 10:01 | Outpatient (CLI) | payer MEDICAID, SELFPAY ==
--- NOTE | 2025-08-10 10:00 | CRLHL7_ITS ---
For Patients: As a result of the Cures Act, medical imaging exams and procedure reports are released immediately into your electronic medical record. You may view this report before your referring provider. If you have questions, please contact your health care provider. OB ULTRASOUND INDICATION: Dating. TECHNIQUE: Real time grayscale imaging of the fetus was performed. Transabdominal. LMP: 05/24/2025. LEXX by LMP: 02/28/2026. GA: 11 w, 1 d. Previous US: No. CRL: 5.4 cm. 12 w 0 d. LEXX: 02/22/2026. FHR: 167 BPM. Gestational sac: 4.7 cm. Appears within normal limits. Yolk sac: 6.5 mm. Appears within normal limits. Right ovary: Within normal limits. 2.3 x 1.0 x 2.3 cm. Left ovary: Within normal limits. 3.3 x 2.2 x 2.4 cm. CL. IMPRESSION: 1. Single living intrauterine measures 12 weeks 0 days with sonographic due date 02/22/2026. 2. Heterogeneous tissue adjacent to the gestational sac measures 6.9 x 3.1 x 5.2 cm, could be residual blood products from subchorionic hemorrhage. 3. Yolk sac measures 6.6 mm which is likely due to the gestational age. Darnell Peralta M.D. Diagnostic Radiologist [email or web address] ERICK/shelby ryan/Dictated by: Darnell Peralta MD @ 08/10/2025 11:37:00 AM (Electronically Signed)
== END 2025-08-10 10:02 | disposition home or self-care (01) ==
PROVIDERS: Visit Provider Physician Assistant
DX: O20.9 Hemorrhage in early pregnancy, unspecified (principal); Z3A.12 12 weeks gestation of pregnancy
CPT/HCPCS: 76801; 87086; 87491; 87591

== ENCOUNTER 2025-08-17 07:36 | Outpatient (CLI) | payer MEDICAID, SELFPAY | END 2025-08-17 07:37 | disposition home or self-care (01) | LOC: NFLDREF 08-18 15:12 | PROVIDERS: Visit Provider Physician Assistant | DX: Z34.91 Encounter for supervision of normal pregnancy, unspecified, first trimester (principal) | CPT/HCPCS: 83020; 83021; 85660; 86592; 86703; 86704; 86706; 86762; 86787; 86803; 86850; 87340 ==

== ENCOUNTER 2025-08-27 10:39 | Outpatient (CLI) | payer MEDICAID, SELFPAY | END 2025-08-27 10:40 | disposition home or self-care (01) | LOC: NFLDREF 10:40 | PROVIDERS: PCP Family Medicine; Visit Provider Obstetrics & Gynecology | DX: O26.892 Other specified pregnancy related conditions, second trimester (principal); Z67.91 Unspecified blood type, Rh negative | CPT/HCPCS: J2791 ==

== ENCOUNTER 2025-09-07 12:19 | Outpatient (CLI) | payer MEDICAID, SELFPAY ==
--- NOTE | 2025-09-07 12:15 | CRLHL7_ITS ---
For Patients: As a result of the Century Cures Act, medical imaging exams and procedure reports are released immediately into your electronic medical record. You may view this report before your referring provider. If you have questions, please contact your health care provider. OB ULTRASOUND FOLLOW-UP CLINICAL HISTORY: Follow-up MILA (increased bleeding). TECHNIQUE: Real time hill scale imaging of the fetus was performed. Grayscale and color Doppler ultrasound of the uterus and ovaries from a transabdominal and transvaginal approach. Transvaginal ultrasound of the pelvis was performed to better evaluate the genitourinary organs such as the ovaries and/or endometrium. COMPARISON: 08/10/2025. FINDINGS: LMP: 05/24/2025. LEXX by LMP: 02/28/2026. GA: 15 weeks 1 day. Gestation: Single. Cervix: Visualized. TV measurement 3.2 cm. Positioning: Breech. Amniotic Fluid: 4.1 cm SDP. Placenta: Technique: TA. Placenta Position: Posterior. Dopplers: Heart Rate: 157 bpm. BIOMETRY BPD: 3.4 cm, 16 weeks 3 days. 94% HC: 12.7 cm, 16 weeks 3 days. 93% AC: 10.6 cm, 16 weeks 4 days. 91% FL: 1.9 cm, 15 weeks 4 days. 65% FL/AC Ratio: 17.9% HC/AC Ratio: 1.2. EFW: 145.7 grams, 0 lb 5 oz. Age by this US: 16 weeks 2 days. LEXX by this US: 02/20/2026. Percentile by LEXX: 94.8% IMPRESSION: 1. Sonographic gestational age 16 weeks 2 days and sonographic due date 02/20/2026. 2. Persistent contraction at the anterior lower uterine segment noted during the examination. 3. Transvaginal measurement of the cervix performed. Cervix is closed and measures 3.2 cm. 4. Multiple subchorionic hemorrhages are noted measuring 3.6 x 1.3 x 2.7 cm, 2.6 x 1.0 x 1.9 cm and 5.0 x 2.1 x 2.2 cm. Darnell Peralta M.D. Diagnostic Radiologist [email or web address] Transcribed: 4:18 pm DW/Dictated by: Darnell Peralta MD @ 09/07/2025 3:27:00 PM (Electronically Signed)
== END 2025-09-07 12:20 | disposition home or self-care (01) ==
LOC: US 12:20
PROVIDERS: PCP Family Medicine; Visit Provider Physician Assistant
DX: O46.92 Antepartum hemorrhage, unspecified, second trimester (principal); Z3A.16 16 weeks gestation of pregnancy
CPT/HCPCS: 76816; 76817

== ENCOUNTER 2025-09-28 14:00 | Outpatient (CLI) | payer MEDICAID, SELFPAY ==
--- NOTE | 2025-09-28 14:00 | CRLHL7_ITS ---
For Patients: As a result of the Cures Act, medical imaging exams and procedure reports are released immediately into your electronic medical record. You may view this report before your referring provider. If you have questions, please contact your health care provider. OB ULTRASOUND LIMITED Clinical History: LMP: 05/24/2025. LEXX by LMP: 02/18/2026. GA: 18 w, 1 d. Single. Comparison: US 09/07/2025. INDICATION: Bleeding in . TECHNIQUE: Real time hill scale imaging of the fetus was performed. Transabdominal and transvaginal imaging performed. Transvaginal imaging performed to better visualize the cervix. CERVIX: Visualized. Measurement: Transvaginal 2.9 cm. POSITIONING: Vertex. AMNIOTIC FLUID: 2.9 cm SDP (N: greater than 2 x 1 cm) PLACENTA: Technique: Transabdominal. PLACENTA POSITION: Posterior. DOPPLER: heart rate: 155 bpm. IMPRESSION: 1. Transvaginal measurement of the cervix performed. The cervix is closed and measures 3.0 cm. 2. Amniotic fluid volume appears normal with single deepest pocket 2.9 cm. 3. There are residual collections of blood associated with the placenta , not significantly changed since the prior study, measuring 6.2 x 2.8 x 2.4 cm and 8.6 x 1.3 x 2.6 cm. Darnell Peralta M.D. Diagnostic Radiologist [email or web address] SP/Dictated by: Darnell Peralta MD @ 09/28/2025 3:34:00 PM (Electronically Signed)
== END 2025-09-28 14:01 | disposition home or self-care (01) ==
LOC: US 14:01
PROVIDERS: PCP Family Medicine; Visit Provider Obstetrics & Gynecology
DX: O20.9 Hemorrhage in early pregnancy, unspecified (principal); Z3A.18 18 weeks gestation of pregnancy
CPT/HCPCS: 76816; 76817

== ENCOUNTER 2025-10-06 09:11 | Outpatient (CLI) | payer MEDICAID, SELFPAY | END 2025-10-06 09:12 | disposition home or self-care (01) | LOC: US 09:11 | PROVIDERS: PCP Family Medicine; Visit Provider Obstetrics & Gynecology | DX: O45.92 Premature separation of placenta, unspecified, second trimester (principal); O09.512 Supervision of elderly primigravida, second trimester; Z3A.19 19 weeks gestation of pregnancy | CPT/HCPCS: 76811 ==

== ENCOUNTER 2025-10-11 12:20 | Outpatient (CLI) | payer MEDICAID, SELFPAY | END 2025-10-11 12:21 | disposition home or self-care (01) | LOC: NFLDREF 10-15 08:22 | PROVIDERS: PCP Family Medicine; Referring Provider Family Medicine; Visit Provider Obstetrics & Gynecology | DX: O46.92 Antepartum hemorrhage, unspecified, second trimester (principal) | CPT/HCPCS: 86850; 86870 ==

== ENCOUNTER 2025-10-19 12:36 | Outpatient (CLI) | payer MEDICAID, SELFPAY ==
[2025-10-19 12:46] VITALS: PULSE 75; O2SAT 100
[2025-10-19 12:48] VITALS: RESP 16; TEMP 36.6
[2025-10-19 12:49] VITALS: BP 124/69; PULSE 76
--- NOTE | 2025-10-19 13:19 | CRLHL7_ITS ---
For Patients: As a result of the Cures Act, medical imaging exams and procedure reports are released immediately into your electronic medical record. You may view this report before your referring provider. If you have questions, please contact your health care provider. INDICATION: cramping, bleeding (ongoing bleeding, known symptom) assess placenta and cervix. TECHNIQUE: Ultrasound OB pelvis transabdominal. Real-time hill-scale imaging of the pelvis was performed. COMPARISON: OB ultrasound 10/06/2025. FINDINGS: There is a single intrauterine gestation. The embryo demonstrates a regular cardiac rate measuring 154 beats per minute. The embryo`s crown rump length measurement of cm corresponds to a gestational age of with a sonographic due date of . Closed, normal length cervix measuring 4.1 cm. Posterior placenta with prominent venous lakes. Low-lying placenta measuring 1.2 cm from the internal cervical os. IMPRESSION: Single viable intrauterine . Low lying placenta measuring 1.2 cm from the internal cervical os. Normal cervix. Dictated by Silverio Arroyo MD @ 10/19/2025 2:39:58 PM (Electronically Signed)
== END 2025-10-19 15:05 | disposition home or self-care (01) ==
LOC: OB OUT 12:36 → OB 12:36
PROVIDERS: PCP Family Medicine; Visit Provider Obstetrics & Gynecology
DX: O44.40 Low lying placenta NOS or without hemorrhage, unspecified trimester (principal)
CPT/HCPCS: 76815; 76817; G0463